=== PATIENT | female | born 1975 | race Caucasian/White ===

== ENCOUNTER → 2019-06-10 | Outpatient (CLI) | payer OTHER ==
--- NOTE | 2019-06-10 09:08 | MM ---
Reason for exam: screening (asymptomatic). Baseline mammogram. History: Patient is nulliparous. Physical Findings: Nurse did not find any significant physical abnormalities on exam. MG Diagnostic Mammo w CAD ARACELI Bilateral CC and MLO view(s) were taken. The breast tissue is heterogeneously dense. This may lower the sensitivity of mammography. No significant findings. These results were verbally communicated with the patient and result sheet given to the patient on 06/10/19. ASSESSMENT: Incomplete: need additional imaging evaluation, BI-RAD 0 RECOMMENDATION: Ultrasound of the left breast.
--- NOTE | 2019-06-10 09:09 | USB ---
Reason for exam: additional evaluation requested from abnormal screening. History: Patient is nulliparous. US Breast BILAT Right complete breast ultrasound includes all four quadrants, the retroareolar region and axilla. Finding demonstrates no cystic or solid lesion seen. Left complete breast ultrasound includes all four quadrants, the retroareolar region and axilla. Finding demonstrates no cystic or solid lesion seen. These results were verbally communicated with the patient and result sheet given to the patient on 06/10/19. ASSESSMENT: Benign, BI-RAD 2 RECOMMENDATION: Routine screening mammogram of both breasts in 1 year.
== END | disposition home or self-care (01) ==
LOC: RADMAMWWP 07:26
PROVIDERS: ATTEND Internal Medicine
DX: N63.20 Unspecified lump in the left breast, unspecified quadrant (principal); N63.10 Unspecified lump in the right breast, unspecified quadrant; R92.8 Other abnormal and inconclusive findings on diagnostic imaging of breast
CPT/HCPCS: 77066

== ENCOUNTER → 2020-02-17 | Outpatient (CLI) | payer OTHER ==
[2020-02-17 16:05] LABS: Albumin 4.7 g/dL (3.80-4.90); Albumin/Globulin Ratio 2.35 (1.60-3.17); Anion Gap 6.4 mmol/L (4.00-12.00); BUN/Creat Ratio 17.14 Ratio (12.00-20.00); Calcium 9.6 mg/dL (8.7-10.3); Carbon Dioxide 23.6 mmol/L (21.6-31.8); Non-African American GFR(CKD) 106.1 (60.0-200.0); Potassium 4.7 mmol/L (3.5-5.5); Total Bilirubin 0.4 mg/dL (0.2-1.2); Total Protein 6.7 g/dL (6.2-8.2)
[2020-02-17 16:06] LABS: Chol/HDL Ratio 2.91; LDL Cholesterol,Calculated 113.4 mg/dL (0.0-131.0); VLDL Calculation 27.6 mg/dL (5.00-40.00)
[2020-02-17 17:42] LABS: Urine Creatinine 103.4 mg/dL
[2020-02-17 17:51] LABS: Hemoglobin A1C 6.4 % (4.0-6.0)
== END | disposition home or self-care (01) ==
LOC: LABWHC1 10:14
PROVIDERS: ATTEND Physician Assistant
DX: E78.5 Hyperlipidemia, unspecified (principal); E11.9 Type 2 diabetes mellitus without complications
CPT/HCPCS: 36415; 80053; 80061; 82043; 82570; 83036

== ENCOUNTER 2022-01-02 12:07 | Inpatient (IN) | payer OTHER ==
--- NOTE | 2022-01-02 12:30 | ED ---
Extremity Problem HPI - General Chief complaint: Extremity Problem,Nontraumatic Stated complaint: Foot swelling/not feeling right Time Seen by Provider: 01/02/22 12:18 Source: patient, RN notes reviewed Mode of arrival: ambulatory Limitations: no limitations - History of Present Illness Initial comments: This is a 46-year-old female who presents to the emergency department for left lower extremity pain and swelling. States that 3 weeks ago she went to urgent care for coughing, and was diagnosed with bronchitis and given a prescription for doxycycline 7 days. States that this helped with her cough, however she still feels overall very ill. She continues to feel shortness of breath, heavy, and just not right. Last night, she noticed that her left foot and left lower leg became painful, states that the calf in particular is very painful. Denies any fevers, chills, sore throat, cough, dyspnea, chest pain, palpitations, abdominal pain, nausea, vomiting, diarrhea, back pain, or headaches. MD Complaint: extremity pain, extremity swelling Onset/Timin -: days(s) Location: left, lower extremity History of Same: No Associated Symptoms: shortness of breath - Related Data Home Medications Medication Instructions Recorded Confirmed Albuterol Sulfate [Proair Hfa] 2 puff INHALATION RT-Q6H PRN 01/02/22 01/02/22 Aspirin EC [Ecotrin Low Dose] 81 mg PO HS 01/02/22 01/02/22 Atorvastatin [Lipitor] 20 mg PO HS 01/02/22 01/02/22 Benzonatate [Benzonatate Perle] 200 mg PO Q8H PRN 01/02/22 01/02/22 Doxycycline Hyclate 100 mg PO BID 01/02/22 01/02/22 metFORMIN HCL [Glucophage] 500 mg PO BID 01/02/22 01/02/22 Allergies Allergy/AdvReac Type Severity Reaction Status Date / Time codeine Allergy Unknown Verified 01/02/22 15:54 Penicillins Allergy Unknown Verified 01/02/22 15:54 Review of Systems ROS Statement: Those systems with pertinent positive or pertinent negative responses have been documented in the HPI. ROS Other: All systems not noted in ROS Statement are negative. Past Medical History Past Medical History: Diabetes Mellitus, Hyperlipidemia History of Any Multi-Drug Resistant Organisms: None Reported Past Surgical History: Appendectomy Past Psychological History: No Psychological Hx Reported Smoking Status: Current every day smoker Past Alcohol Use History: Occasional Past Drug Use History: None Reported General Exam Limitations: no limitations General appearance: alert, in distress Head exam: Present: atraumatic, normocephalic, normal inspection Neck exam: Present: normal inspection. Absent: tenderness, meningismus, lymphadenopathy Respiratory exam: Present: rales (in all four lung diane) Cardiovascular Exam: Present: normal rhythm, tachycardia, normal heart sounds. Absent: systolic murmur, diastolic murmur, rubs, gallop, clicks Extremities exam: Present: normal capillary refill, other (2+ pitting edema in t he left lower extremity. 2+ dorsalis pedis and tibialis posterior pulses bilaterally.) Neurological exam: Present: alert, oriented X3, CN II-XII intact Psychiatric exam: Present: normal affect, normal mood Skin exam: Present: warm, dry, intact, normal color. Absent: rash Course Vital Signs 01/02/22 01/02/22 01/02/22 12:08 12:35 15:44 Temperature 97.4 F L 98.5 F 98.0 F Pulse Rate 123 H 119 H 116 H Respiratory 16 14 14 Rate Blood Pressure 103/74 142/99 132/101 O2 Sat by Pulse 100 100 97 Oximetry Medical Decision Making - Medical Decision Making This is a 46-year-old female who presents to the emergency department for left leg swelling and shortness of breath. Lab work reveals an elevated BNP, she is noted to have rales on auscultation, and has an elevated d-dimer. Given the elevated d-dimer, associated shortness of breath, and tachycardia, CTA was obtained. This did not reveal a pulmonary embolism, however it did reveal cardiomegaly and trace ascites. Cardiomegaly was also present on the chest x- ray. Given the patient's progressive dyspnea and fatigue, will admit the patient for new onset CHF. - Lab Data Result diagrams: 01/02/22 12:38 01/02/22 12:38 Lab Results 01/02/22 01/02/22 01/02/22 Range/Units 12:38 12:38 12:38 WBC 7.4 (3.8-10.6) k/uL RBC 4.27 (3.80-5.40) m/uL Hgb 13.6 (11.4-16.0) gm/dL Hct 42.9 (34.0-46.0) % MCV 100.5 H (80.0-100.0) fL MCH 31.8 (25.0-35.0) pg MCHC 31.6 (31.0-37.0) g/dL RDW 12.9 (11.5-15.5) % Plt Count 318 (150-450) k/uL MPV 7.5 Neutrophils % 73 % Lymphocytes % 18 % Monocytes % 6 % Eosinophils % 1 % Basophils % 1 % Neutrophils # 5.4 (1.3-7.7) k/uL Lymphocytes # 1.4 (1.0-4.8) k/uL Monocytes # 0.4 (0-1.0) k/uL Eosinophils # 0.1 (0-0.7) k/uL Basophils # 0.1 (0-0.2) k/uL ESR Cancelled D-Dimer 0.75 H (<0.60) mg/L FEU Sodium 136 L (137-145) mmol/L Potassium 4.8 (3.5-5.1) mmol/L Chloride 107 (98-107) mmol/L Carbon Dioxide 18 L (22-30) mmol/L Anion Gap 11 mmol/L BUN 10 (7-17) mg/dL Creatinine 0.63 (0.52-1.04) mg/dL Est GFR (CKD-EPI)AfAm >90 (>60 ml/min/1.73 sqM) Est GFR (CKD-EPI)NonAf >90 (>60 ml/min/1.73 sqM) Glucose 125 H (74-99) mg/dL Calcium 8.9 (8.4-10.2) mg/dL Total Bilirubin 1.2 (0.2-1.3) mg/dL AST 53 H (14-36) U/L ALT 41 H (4-34) U/L Alkaline Phosphatase 81 (38-126) U/L Troponin I (0.000-0.034) ng/mL C-Reactive Protein 0.6 (<1.0) mg/dL NT-Pro-B Natriuret Pep pg/mL Total Protein 7.1 (6.3-8.2) g/dL Albumin 4.2 (3.5-5.0) g/dL Coronavirus (PCR) (Not Detectd) Influenza Type A RNA (Not Detectd) Influenza Type B (PCR) (Not Detectd) 01/02/22 01/02/22 01/02/22 Range/Units 12:38 12:38 12:38 WBC (3.8-10.6) k/uL RBC (3.80-5.40) m/uL Hgb (11.4-16.0) gm/dL Hct (34.0-46.0) % MCV (80.0-100.0) fL MCH (25.0-35.0) pg MCHC (31.0-37.0) g/dL RDW (11.5-15.5) % Plt Count (150-450) k/uL MPV Neutrophils % % Lymphocytes % % Monocytes % % Eosinophils % % Basophils % % Neutrophils # (1.3-7.7) k/uL Lymphocytes # (1.0-4.8) k/uL Monocytes # (0-1.0) k/uL Eosinophils # (0-0.7) k/uL Basophils # (0-0.2) k/uL ESR D-Dimer (<0.60) mg/L FEU Sodium (137-145) mmol/L Potassium (3.5-5.1) mmol/L Chloride (98-107) mmol/L Carbon Dioxide (22-30) mmol/L Anion Gap mmol/L BUN (7-17) mg/dL Creatinine (0.52-1.04) mg/dL Est GFR (CKD-EPI)AfAm (>60 ml/min/1.73 sqM) Est GFR (CKD-EPI)NonAf (>60 ml/min/1.73 sqM) Glucose (74-99) mg/dL Calcium (8.4-10.2) mg/dL Total Bilirubin (0.2-1.3) mg/dL AST (14-36) U/L ALT (4-34) U/L Alkaline Phosphatase (38-126) U/L Troponin I <0.012 (0.000-0.034) ng/mL C-Reactive Protein (<1.0) mg/dL NT-Pro-B Natriuret Pep pg/mL Total Protein (6.3-8.2) g/dL Albumin (3.5-5.0) g/dL Coronavirus (PCR) Not Detected (Not Detectd) Influenza Type A RNA Not Detected (Not Detectd) Influenza Type B (PCR) Not Detected (Not Detectd) 01/02/22 01/02/22 Range/Units 12:38 14:00 WBC (3.8-10.6) k/uL RBC (3.80-5.40) m/uL Hgb (11.4-16.0) gm/dL Hct (34.0-46.0) % MCV (80.0-100.0) fL MCH (25.0-35.0) pg MCHC (31.0-37.0) g/dL RDW (11.5-15.5) % Plt Count (150-450) k/uL MPV Neutrophils % % Lymphocytes % % Monocytes % % Eosinophils % % Basophils % % Neutrophils # (1.3-7.7) k/uL Lymphocytes # (1.0-4.8) k/uL Monocytes # (0-1.0) k/uL Eosinophils # (0-0.7) k/uL Basophils # (0-0.2) k/uL ESR 5 D-Dimer (<0.60) mg/L FEU Sodium (137-145) mmol/L Potassium (3.5-5.1) mmol/L Chloride (98-107) mmol/L Carbon Dioxide (22-30) mmol/L Anion Gap mmol/L BUN (7-17) mg/dL Creatinine (0.52-1.04) mg/dL Est GFR (CKD-EPI)AfAm (>60 ml/min/1.73 sqM) Est GFR (CKD-EPI)NonAf (>60 ml/min/1.73 sqM) Glucose (74-99) mg/dL Calcium (8.4-10.2) mg/dL Total Bilirubin (0.2-1.3) mg/dL AST (14-36) U/L ALT (4-34) U/L Alkaline Phosphatase (38-126) U/L Troponin I (0.000-0.034) ng/mL C-Reactive Protein (<1.0) mg/dL NT-Pro-B Natriuret Pep 3380 pg/mL Total Protein (6.3-8.2) g/dL Albumin (3.5-5.0) g/dL Coronavirus (PCR) (Not Detectd) Influenza Type A RNA (Not Detectd) Influenza Type B (PCR) (Not Detectd) - EKG Data EKG Comments: Sinus tachycardia. Ventricular rate 118 bpm, AL interval 162 ms, QRS duration 90 ms, and QTC 397 ms. Disposition Clinical Impression: New onset of congestive heart failure, Dyspnea Disposition: ADMITTED IP TO THIS HOSP Referrals: Altagracia Mckinnon MD [Primary Care Provider] - 1-2 days
[2022-01-02] MEDS ORDERED: diphenhydrAMINE 50 MG CAP PO STA (13:05)
[2022-01-02] MEDS ORDERED: haloperidoL 1 MG TAB PO STA (13:05)
[2022-01-02 13:17] LABS: Basophils # (A) 0.1 k/uL (0-0.2); Basophils % (A) 1 %; Eosinophils # (A) 0.1 k/uL (0-0.7); Eosinophils % (A) 1 %; HCT 42.9 % (34.0-46.0); HGB 13.6 gm/dL (11.4-16.0); Lymphocytes # (A) 1.4 k/uL (1.0-4.8); Lymphocytes % (A) 18 %; MCH 31.8 pg (25.0-35.0); MCHC 31.6 g/dL (31.0-37.0); MCV 100.5 fL (80.0-100.0); Mean Platelet Volume 7.5; Monocytes # (A) 0.4 k/uL (0-1.0); Monocytes % (A) 6 %; Neutrophils # (A) 5.4 k/uL (1.3-7.7); Neutrophils % (A) 73 %; Platelet Count 318 k/uL (150-450); RBC 4.27 m/uL (3.80-5.40); RDW 12.9 % (11.5-15.5); WBC 7.4 k/uL (3.8-10.6)
--- NOTE | 2022-01-02 13:28 | XR ---
EXAMINATION TYPE: XR chest 2V DATE OF EXAM: 01/02/2022 COMPARISON: NONE HISTORY: Cough and shortness of breath TECHNIQUE: Frontal and lateral views of the chest are obtained. FINDINGS: There is no focal air space opacity, pleural effusion, or pneumothorax seen. The cardiac silhouette size is mildly enlarged. The osseous structures are intact. IMPRESSION: Mild cardiomegaly without acute pulmonary process.
[2022-01-02 13:35] LABS: ALT 41 U/L (4-34); AST 53 U/L (14-36); African American GFR (CKD) >90 (>60 ml/min/1.73 sqM); Albumin 4.2 g/dL (3.5-5.0); Alkaline Phosphatase 81 U/L (38-126); Anion Gap 11 mmol/L; Blood Urea Nitrogen 10 mg/dL (7-17); Calcium 8.9 mg/dL (8.4-10.2); Carbon Dioxide 18 mmol/L (22-30); Chloride 107 mmol/L (98-107); Glucose 125 mg/dL (74-99); Non-African American GFR(CKD) >90 (>60 ml/min/1.73 sqM); Potassium 4.8 mmol/L (3.5-5.1); Sodium 136 mmol/L (137-145); Total Bilirubin 1.2 mg/dL (0.2-1.3); Total Protein 7.1 g/dL (6.3-8.2)
[2022-01-02 13:39] LABS: C Reactive Protein 0.6 mg/dL (<1.0)
--- NOTE | 2022-01-02 14:16 | US ---
EXAMINATION TYPE: US venous doppler duplex LE LT DATE OF EXAM: 01/02/2022 1:58 PM COMPARISON: NONE CLINICAL HISTORY: Left leg pain and swelling. Left calf pain and swelling. Pt states has never had a blood clot. SIDE PERFORMED: Left TECHNIQUE: The lower extremity deep venous system is examined utilizing real time linear array sonog liya with graded compression, doppler sonography and color-flow sonography. VESSELS IMAGED: Common Femoral Vein Deep Femoral Vein Greater Saphenous Vein * Femoral Vein Popliteal Vein Small Saphenous Vein * Proximal Calf Veins (* superficial vessels) Grayscale, color doppler, spectral doppler imaging performed of the deep veins of the lower extremiti es. There is normal flow, compressibility, vascular waveforms. Left Leg: Negative for DVT IMPRESSION: No evidence of DVT of the left lower survey.
--- NOTE | 2022-01-02 15:20 | CT ---
EXAMINATION TYPE: CT chest angio for PE CT DLP: 354.7 mGycm, Automated exposure control for dose reduction was used. DATE OF EXAM: 01/02/2022 2:59 PM COMPARISON: Chest radiograph from same day. CLINICAL INDICATION:Female, 46 years old with history of SOB, tachycardia, elevated d-dimer and BNP; SOB, tachycardia, elevated d-dimer, BNP. Lower extremity swelling. Pt denies cardiac hx. TECHNIQUE/CONTRAST: CTA scan of the thorax is performed with IV Contrast, patient injected with 100 mL of Isovue 370, pul monary embolism protocol. MIP images are created and reviewed. FINDINGS: Pulmonary Artery: There is no evidence for a filling defect within the pulmonary vasculature to sugge st acute pulmonary embolism. The pulmonary artery is of normal size. Lungs/Pleura: No evidence of focal consolidation, pleural effusion or pneumothorax. Streaky atelectas is seen in the posterior aspect of the left upper lobe. Airway: Large airways are patent. Heart: The heart is enlarged for size. Vasculature: No evidence of aortic aneurysm. Mediastinum: No gross evidence of adenopathy. Musculoskeletal: Mild degenerative disc disease changes are present throughout the thoracolumbar spin e. Soft Tissues: Unremarkable. Lower neck: No significant findings. Upper Abdomen: Trace ascites within and around the liver. [facility] so [facility] and I were post[facility] days) IMPRESSION: 1. No evidence of pulmonary embolism. 2. Cardiomegaly 3. Trace ascites.
[2022-01-02] MEDS ORDERED: ONDANSETRON 4 MG/2 ML VIAL IVP PRN (16:32)
[2022-01-02] MEDS ORDERED: oxyCODONE-APAP 5-325MG 1 EACH TAB PO PRN (16:32)
[2022-01-02] MEDS ORDERED: ACETAMINOPHEN TAB 325 MG TAB PO PRN (16:32)
[2022-01-02] MEDS ORDERED: NALOXONE 0.4 MG/ML 1 ML VIAL IV PRN (16:32)
[2022-01-02] MEDS ORDERED: IPRATROPIUM-ALBUTEROL 3 ML NEB INHALATION PRN (17:22)
--- NOTE | 2022-01-02 17:40 | P.HPIM ---
History of Present Illness H&P Date: 01/02/22 Chief Complaint: shortness of breath Patient is a 46-year-old female with a past medical history of prediabetes, hyperlipidemia and tobacco abuse who presents to the ED with worsening dyspnea over the last 3 weeks. Patient did go to urgent care who thought she had bronchitis so started her on steroids and antibiotics. Patient states that this was not helping and then she noticed that she was having worsening edema in her bilateral lower extremities which prompted her to come to the ED.. Patient denies any PND or orthopnea. She stated that she is coughing up clear sputum. She denies any fever or chills. In the ED patient was tachycardic and her d-dimer was elevated so CTA chest was done. CTA chest was negative for PE however did show cardiomegaly. Patient lower extremity Dopplers were negative for DVT. Patient's BNP was elevated at 3380. Patient was admitted for likely new onset heart failure. Review of Systems 10 ROS reviewed and are negative except as noted in HPI Past Medical History Past Medical History: Diabetes Mellitus, Hyperlipidemia History of Any Multi-Drug Resistant Organisms: None Reported Past Surgical History: Appendectomy Past Psychological History: No Psychological Hx Reported Smoking Status: Current every day smoker Past Alcohol Use History: Occasional Past Drug Use History: None Reported Medications and Allergies Home Medications Medication Instructions Recorded Confirmed Type Albuterol Sulfate [Proair Hfa] 2 puff INHALATION RT-Q6H PRN 01/02/22 01/02/22 History Aspirin EC [Ecotrin Low Dose] 81 mg PO HS 01/02/22 01/02/22 History Atorvastatin [Lipitor] 20 mg PO HS 01/02/22 01/02/22 History Benzonatate [Benzonatate Perle] 200 mg PO Q8H PRN 01/02/22 01/02/22 History Doxycycline Hyclate 100 mg PO BID 01/02/22 01/02/22 History metFORMIN HCL [Glucophage] 500 mg PO BID 01/02/22 01/02/22 History Allergies Allergy/AdvReac Type Severity Reaction Status Date / Time codeine Allergy Unknown Verified 01/02/22 15:54 Penicillins Allergy Unknown Verified 01/02/22 15:54 Physical Exam Osteopathic Statement: *. No significant issues noted on an osteopathic structural exam other than those noted in the History and Physical/Consult. Vitals: Vital Signs Temp Pulse Resp BP Pulse Ox 01/02/22 17:17 98.1 F 114 H 14 133/88 95 01/02/22 15:44 98.0 F 116 H 14 132/101 97 01/02/22 12:35 98.5 F 119 H 14 142/99 100 01/02/22 12:08 97.4 F L 123 H 16 103/74 100 Intake and Output 01/02/22 01/02/22 01/02/22 06:59 14:59 22:59 Other: Weight 74.843 kg General: [Alert and oriented, well nourished, no acute distress]. Eye: [PERRL, EOMI, normal conjunctiva]. HENT: [Normocephalic, clear tympanic membranes, normal hearing, moist oral mucosa, no scleral icterus, no sinus tenderness]. Neck: [Supple, non-tender, no carotid bruits, no JVD, no lymphadenopathy]. Lungs: [Bilateral wheezing]. Heart: [Tachycardic, regular rhythm, no murmur, gallop + pitting edema in bilateral lower extremities]. Abdomen: [Soft, non-tender, non-distended, normal bowel sounds, no masses]. Musculoskeletal: [Normal range of motion and strength, no tenderness or swelling]. Skin: [Skin is warm, dry and pink, no rashes or lesions]. Neurologic: [Awake, alert, and oriented X3, CN II-XII intact]. Psychiatric: [Cooperative, appropriate mood and affect]. Results CBC & Chem 7: 01/02/22 12:38 01/02/22 12:38 Labs: Abnormal Lab Results - Last 24 Hours (Table) 01/02/22 01/02/22 01/02/22 Range/Units 12:38 12:38 12:38 MCV 100.5 H (80.0-100.0) fL D-Dimer 0.75 H (<0.60) mg/L FEU Sodium 136 L (137-145) mmol/L Carbon Dioxide 18 L (22-30) mmol/L Glucose 125 H (74-99) mg/dL AST 53 H (14-36) U/L ALT 41 H (4-34) U/L Assessment and Plan Assessment: #Dyspnea and worsening lower extremity edema #Suspect heart failure #Suspect COPD exacerbation #Tobacco abuse -We will start patient on IV Lasix 20 mg daily -Strict I's and O's, daily weights, fluid restriction -Check echocardiogram -DuoNeb standing and when necessary --IV Solu-Medrol 40 mg every 6 hours -Azithromycin -Nicotine patch. Patient counseled on smoking cessation #Sinus tachycardia likely due to dyspnea -Monitor on telemetry #Prediabetes -Hold metformin. Sliding scale insulin #Hyperlipidemia -Resume statin CODE STATUS:full code DVT prophylaxis: SCDs Discussed with: Patient, ER, rn Anticipated length of stay < than [address]: home A total of 50 minutes was spent on the care of this complex patient more than 50% of the time was spent in counseling and care coordination.
[2022-01-02] MEDS: AZITHROMYCIN 500 MG TAB PO SCH (17:45)
[2022-01-02] MEDS: NICOTINE 21MG/24HR PATCH TRANSDERM SCH (17:49)
[2022-01-02] MEDS: methylPREDNISolone SOD SUCCI 40 MG/ML 1 ML VIAL IV SCH (17:49)
[2022-01-02] MEDS: IPRATROPIUM-ALBUTEROL 3 ML NEB INHALATION SCH (19:14)
[2022-01-02] MEDS: BENZONATATE 100 MG CAP PO PRN (20:01)
[2022-01-02] MEDS: FUROSEMIDE 10 MG/ML 2 ML VIAL IV SCH (20:02)
[2022-01-02] MEDS: ASPIRIN 81 MG PO SCH (20:02)
[2022-01-02] MEDS: ATORVASTATIN 20 MG TAB PO SCH (20:02)
[2022-01-02] MEDS ORDERED: MELATONIN 5 MG TABLET PO ONE (23:58)
[2022-01-03] MEDS: methylPREDNISolone SOD SUCCI 40 MG/ML 1 ML VIAL IV SCH ×4 (00:52→20:42)
[2022-01-03 06:45] LABS: Glucose,Whole Blood 261 mg/dL (75-99)
[2022-01-03] MEDS: INSULIN ASPART (NovoLOG) 100 UNIT/ML VIAL SQ SCH ×5 (06:49→20:41)
[2022-01-03] MEDS: IPRATROPIUM-ALBUTEROL 3 ML NEB INHALATION SCH ×3 (07:40→20:30)
[2022-01-03] MEDS: AZITHROMYCIN 500 MG TAB PO SCH (09:04)
[2022-01-03] MEDS: NICOTINE 21MG/24HR PATCH TRANSDERM SCH (09:05)
[2022-01-03] MEDS: FUROSEMIDE 10 MG/ML 2 ML VIAL IV SCH ×2 (09:05→20:40)
[2022-01-03 09:14] LABS: ALT 32 U/L (4-34); AST 32 U/L (14-36); African American GFR (CKD) >90 (>60 ml/min/1.73 sqM); Albumin 3.8 g/dL (3.5-5.0); Alkaline Phosphatase 76 U/L (38-126); Anion Gap 9 mmol/L; Blood Urea Nitrogen 16 mg/dL (7-17); Calcium 8.7 mg/dL (8.4-10.2); Carbon Dioxide 21 mmol/L (22-30); Chloride 103 mmol/L (98-107); Glucose 372 mg/dL (74-99); Non-African American GFR(CKD) >90 (>60 ml/min/1.73 sqM); Potassium 4.8 mmol/L (3.5-5.1); Sodium 133 mmol/L (137-145); Total Protein 6.2 g/dL (6.3-8.2)
--- NOTE | 2022-01-03 10:58 | P.CNPUL ---
History of Present Illness Consult date: 01/03/22 Reason for consult: dyspnea History of present illness: 46-year-old male patient admitted to [facility] because of increased shortness of breath a few weeks duration. The patient went to an urgent care for symptoms of bronchitis and he was given antibiotics and steroids. He was also noticing some increased edema in lower extremities bilaterally. He denied having any orthopnea. He was coughing up some clear sputum. For that reason he came into the hospital and the chest x-ray at the time of admission showed cardiomegaly without any acute abnormalities. The patient's proBNP level was 3318. A CT angiogram was done and the patient was found to have no evidence of any pulmonary embolism. There was background cardiomegaly and trace ascites. The lungs were free of any consolidation or pleural effusion or pneumothorax. Some atelectatic changes were seen in the posterior aspect of the left upper lobe. Airways were essentially patent. The patient was negative for influenza A and B. The COVID 19 testing was also negative. His blood work showed a white cell count 7.4 with hemoglobin 13.6. D-dimer was at 0.75, electrodes were normal, renal function was normal, proBNP level was 3380. Currently, the patient is receiving treatment with IV Lasix 20 mg every 12 hours. He was also placed on DuoNeb neb last treatment [id number] and empiric antibiotic coverage for Zithromax. Is a chronic smoker is currently on a nicotine patch. He is known to have diabetes mellitus and hyperlipidemia. Echo of the heart has been o rdered. He is currently on O2 and he is on 3 L with a pulse ox of 98%. No history of asthma. No history of emphysema. She is a chronic smoker and she's been smoking since the age of 20. 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 She has received COVID 19 vaccination 2. Covid 19 testing is been negative. Review of Systems Constitutional: Denies chills, Denies fever Eyes: denies as per HPI, denies blurred vision, denies bulging eye, denies decreased vision, denies diplopia, denies discharge, denies dry eye, denies irritation, denies itching, denies pain, denies photophobia, denies loss of peripheral vision, denies loss of vision, denies tunnel vision/blind spots Ears, nose, mouth and throat: Denies headache, Denies sore throat Breasts: absent: as per HPI, change in shape, gynecomastia, masses, nipple discharge, pain, skin changes, swelling Cardiovascular: Reports leg edema, Reports shortness of breath Respiratory: Reports dyspnea Gastrointestinal: Reports as per HPI Genitourinary: Reports as per HPI Menstruation: Reports as per HPI Musculoskeletal: Reports as per HPI Musculoskeletal: bilateral: ankle swelling, absent: ankle pain, ankle stiffness Integumentary: Reports as per HPI Neurological: Reports as per HPI Psychiatric: Reports insomnia, Reports sleep disturbances Endocrine: Reports as per HPI Hematologic/Lymphatic: Reports as per HPI Allergic/Immunologic: Reports as per HPI Past Medical History Past Medical History: Diabetes Mellitus, Hyperlipidemia Additional Past Medical History / Comment(s): Chronic insomnia History of Any Multi-Drug Resistant Organisms: None Reported Past Surgical History: Appendectomy Past Psychological History: No Psychological Hx Reported Smoking Status: Current every day smoker Past Alcohol Use History: Occasional Past Drug Use History: None Reported - Past Family History Mother Family Medical History: Hyperlipidemia Medications and Allergies Home Medications Medication Instructions Recorded Confirmed Type Albuterol Sulfate [Proair Hfa] 2 puff INHALATION RT-Q6H PRN 01/02/22 01/02/22 History Aspirin EC [Ecotrin Low Dose] 81 mg PO HS 01/02/22 01/02/22 History Atorvastatin [Lipitor] 20 mg PO HS 01/02/22 01/02/22 History Benzonatate [Benzonatate Perle] 200 mg PO Q8H PRN 01/02/22 01/02/22 History Doxycycline Hyclate 100 mg PO BID 01/02/22 01/02/22 History metFORMIN HCL [Glucophage] 500 mg PO BID 01/02/22 01/02/22 History Allergies Allergy/AdvReac Type Severity Reaction Status Date / Time codeine Allergy Unknown Verified 01/02/22 15:54 Penicillins Allergy Unknown Verified 01/02/22 15:54 Physical Exam Vitals: Vital Signs Temp Pulse Pulse Resp BP BP Pulse Ox 01/03/22 07:56 100 01/03/22 07:41 100 01/03/22 04:10 98 01/03/22 04:00 97.6 F 110 H 18 127/88 89 L 01/03/22 00:00 97.7 F 113 H 16 139/99 94 L 01/02/22 20:06 117 H 136/104 96 01/02/22 19:24 116 H 01/02/22 19:14 118 H 01/02/22 17:17 98.1 F 114 H 14 133/88 95 01/02/22 15:44 98.0 F 116 H 14 132/101 97 01/02/22 12:35 98.5 F 119 H 14 142/99 100 01/02/22 12:08 97.4 F L 123 H 16 103/74 100 Intake and Output 01/02/22 01/03/22 01/03/22 22:59 06:59 14:59 Intake Total 240 Output Total 750 Balance -510 Intake: Oral 240 Output: Urine 750 Other: Voiding Method Toilet # Voids 2 Weight 74.843 kg 82.1 kg General: [Alert and oriented, well nourished, no acute distress, on 3 liters/ min and she was switched to RA 02 Taken off the oxygen and she is currently on room air oxygen. She is able to speak Full sentences. Head exam was generally normal. There was no scleral icterus or corneal arcus. Mucous membranes were moist. Neck was supple and without jugular venous distension, thyromegaly, or carotid bruits. Carotids were easily palpable bilaterally. There was no adenopathy. Lungs sounds are diminished and the patient has prolongation of the exhalation phase of breathing and diffuse expiratory wheezes throughout the lung diane bilaterally Heart: [Tachycardic, regular rhythm, no murmur, gallop + pitting edema in bilateral lower extremities]. Abdomen: [Soft, non-tender, non-distended, normal bowel sounds, no masses]. Musculoskeletal: [Normal range of motion and strength, no tenderness or swelling]. Skin: [ Examination of the skin revealed no evidence of significant rashes, suspicious appearing nevi or other concerning lesions. Neurologic: Neurologically, the patient is awake and alert and the patient does not have any focal neurological deficit. Cranial nerves are essentially intact. Psychiatric: [Cooperative, appropriate mood and affect]. Results - Laboratory Findings CBC and BMP: 01/02/22 12:38 01/03/22 08:38 PT/INR, D-dimer D-Dimer 0.75 mg/L FEU (<0.60) H 01/02/22 12:38 Abnormal lab findings: Abnormal Labs 01/02/22 01/02/22 01/02/22 12:38 12:38 12:38 MCV 100.5 H D-Dimer 0.75 H Sodium 136 L Carbon Dioxide 18 L Glucose 125 H POC Glucose (mg/dL) AST 53 H ALT 41 H Total Protein 01/03/22 01/03/22 06:17 08:38 MCV D-Dimer Sodium 133 L Carbon Dioxide 21 L Glucose 372 H POC Glucose (mg/dL) 261 H AST ALT Total Protein 6.2 L - Diagnostic Findings Chest x-ray: image reviewed CT scan - chest: image reviewed Assessment and Plan Plan: 1 acute hypoxic respiratory failure probably due to a component of chronic bronchitis with an acute exacerbation in addition to a component of CHF that needs to be further investigated. The patient is a chronic smoker. Currently she is bronchospastic and wheezy. She did have signs of CHF at the time of admission with elevation of the pro BNP level and the patient has responded nicely to diuretics. Currently she is on room air oxygen 2 shortness of breath secondary to above 3 elevated proBNP level with some increased lower extremity edema consider underlying CHF 4 chronic smoker 5 diabetes mellitus type 2 6 Hyperlipidemia cholesterol Plan Continue DuoNeb [id number] Continued IV Solu-Medrol Agree with Zithromax as a empiric antibiotic coverage Continue with Lasix 20 mg IV every 12 hours Proceed with echocardiogram to evaluate LV function Nicotine patch Smoking cessation counseling Outpatient PFT with a concern of this patient having chronic bronchitis related to chronic smoking Resume diabetic meds We'll continue to follow. COVID 19 testing is been negative and the patient has been vaccinated 2.
--- NOTE | 2022-01-03 11:06 | P.CRDCN ---
History of Present Illness Consult date: 01/03/22 History of present illness: HISTORY OF PRESENT ILLNESS: This is a 46-year-old female with a past medical history significant for diabetes and hyperlipidemia. Patient is a pack a day smoker. She reports alcohol use twice a week. Patient does not follow with a service cleaner. We have been asked to see the patient in consultation for congestive heart failure. Patient examined at the bedside. Patient states she thought she was getting bronchitis b ecause she was coughing a lot and was short of breath. She states that she went to the urgent care and was given antibiotics for possible pneumonia. She states at home she was bringing up clear/white sputum. She denied any fever or chills. She reported some lower extremity swelling which has improved since coming to the hospital. She states her shortness of breath persisted so she decided to come to the emergency room. She denies any chest pain or pressure. Denies dizziness or lightheadedness. * EKG reveals sinus tachycardia with no signs of acute ischemia * Chest xray mild cardiomegaly without acute pulmonary process * Chest CT: No evidence for PE, cardiomegaly, trace ascites * Laboratory data: WBC 7.4. Hemoglobin 13.6. Platelet count 318. D-dimer 0.75. Sodium 136. Potassium 4.8. BUN 10. Creatinine 0.63. Troponin negative 1. ProBNP 3380. * Current home cardiac medications include Lipitor 20 mg at night and aspirin 81 mg at night REVIEW OF SYSTEMS: At the time of my exam: CONSTITUTIONAL: Denies fever or chills. HEENT: Denies blurred vision, vision changes, or eye pain. Denies hemoptysis CARDIOVASCULAR: Denies chest pain. Denies orthopnea. Denies PND. Denies palpitations RESPIRATORY: Denies shortness of breath. GASTROINTESTINAL: Denies abdominal pain. Denies nausea or vomiting. HEMATOLOGIC: Denies bleeding disorders. GENITOURINARY: Denies any blood in urine. SKIN: Denies pruitis. Denies rash. PHYSICAL EXAM: VITAL SIGNS: Reviewed. GENERAL: Well-developed in no acute distress. HEENT: Head is normocephalic. Pupils are equal, round. Sclerae anicteric. Mucous membranes of the mouth are moist. Neck supple. No JVD or thyromegaly LUNGS: Respirations even and unlabored. Lungs diminished with expiratory whe ezing noted HEART: Regular rate and rhythm. S1 and S2 heard. ABDOMEN: Soft. Nondistended. Nontender. EXTREMITIES: Normal range of motion. No clubbing or cyanosis. Peripheral pulses intact. Trace lower extremity edema NEUROLOGIC: Awake and alert. Oriented x 3. ASSESSMENT: Shortness of breath Possible COPD versus bronchitis with wheezing on exam New-onset heart failure, type unknown, etiology unclear Diabetes Hyperlipidemia Nicotine dependence PLAN: Obtain 2D echo to assess cardiac structure and function Continue IV lasix Daily weights Accurate I&O Monitor kidney function Smoking cessation recommended Consult pulmonary for evaluation Further recommendations pending patient's course Nurse practitioner note has been reviewed by physician. Signing provider agrees with the documented findings, assessment, and plan of care. Past Medical History Past Medical History: Diabetes Mellitus, Hyperlipidemia History of Any Multi-Drug Resistant Organisms: None Reported Past Surgical History: Appendectomy Past Psychological History: No Psychological Hx Reported Smoking Status: Current every day smoker Past Alcohol Use History: Occasional Past Drug Use History: None Reported - Past Family History Mother Family Medical History: Hyperlipidemia Medications and Allergies Home Medications Medication Instructions Recorded Confirmed Type Albuterol Sulfate [Proair Hfa] 2 puff INHALATION RT-Q6H PRN 01/02/22 01/02/22 History Aspirin EC [Ecotrin Low Dose] 81 mg PO HS 01/02/22 01/02/22 History Atorvastatin [Lipitor] 20 mg PO HS 01/02/22 01/02/22 History Benzonatate [Benzonatate Perle] 200 mg PO Q8H PRN 01/02/22 01/02/22 History Doxycycline Hyclate 100 mg PO BID 01/02/22 01/02/22 History metFORMIN HCL [Glucophage] 500 mg PO BID 01/02/22 01/02/22 History Allergies Allergy/AdvReac Type Severity Reaction Status Date / Time codeine Allergy Unknown Verified 01/02/22 15:54 Penicillins Allergy Unknown Verified 01/02/22 15:54 Physical Exam Vitals: Vital Signs Temp Pulse Pulse Resp BP BP Pulse Ox 01/03/22 07:41 100 01/03/22 04:10 98 01/03/22 04:00 97.6 F 110 H 18 127/88 89 L 01/03/22 00:00 97.7 F 113 H 16 139/99 94 L 01/02/22 20:06 117 H 136/104 96 01/02/22 19:24 116 H 01/02/22 19:14 118 H 01/02/22 17:17 98.1 F 114 H 14 133/88 95 01/02/22 15:44 98.0 F 116 H 14 132/101 97 01/02/22 12:35 98.5 F 119 H 14 142/99 100 01/02/22 12:08 97.4 F L 123 H 16 103/74 100 Intake and Output 01/02/22 01/03/22 01/03/22 22:59 06:59 14:59 Other: Voiding Method Toilet # Voids 2 Weight 74.843 kg 82.1 kg Results 01/02/22 12:38 01/03/22 08:38 Cardiac Enzymes 01/02/22 01/02/22 Range/Units 12:38 12:38 AST 53 H (14-36) U/L Troponin I <0.012 (0.000-0.034) ng/mL CBC 01/02/22 Range/Units 12:38 WBC 7.4 (3.8-10.6) k/uL RBC 4.27 (3.80-5.40) m/uL Hgb 13.6 (11.4-16.0) gm/dL Hct 42.9 (34.0-46.0) % Plt Count 318 (150-450) k/uL Comprehensive Metabolic Panel 01/02/22 Range/Units 12:38 Sodium 136 L (137-145) mmol/L Potassium 4.8 (3.5-5.1) mmol/L Chloride 107 (98-107) mmol/L Carbon Dioxide 18 L (22-30) mmol/L BUN 10 (7-17) mg/dL Creatinine 0.63 (0.52-1.04) mg/dL Glucose 125 H (74-99) mg/dL Calcium 8.9 (8.4-10.2) mg/dL AST 53 H (14-36) U/L ALT 41 H (4-34) U/L Alkaline Phosphatase 81 (38-126) U/L Total Protein 7.1 (6.3-8.2) g/dL Albumin 4.2 (3.5-5.0) g/dL Current Medications Generic Name Dose Route Start Last Admin Trade Name Freq PRN Reason Stop Dose Admin Acetaminophen 650 mg 01/02/22 16:32 01/02/22 20:01 Acetaminophen Tab 325 Mg Tab PO 650 mg Q6HR PRN Administration Mild Pain or Fever > 100.5 Albuterol/Ipratropium 3 ml 01/02/22 20:00 01/03/22 07:40 Ipratropium-Albuterol 3 Ml Neb INHALATION 3 ml RT-TID BENNY Administration Albuterol/Ipratropium 3 ml 01/02/22 17:22 Ipratropium-Albuterol 3 Ml Neb INHALATION RT-Q4H PRN Wheezing Aspirin 81 mg 01/02/22 21:00 01/02/22 20:02 Aspirin 81 Mg PO 81 mg HS BENNY Administration Atorvastatin Calcium 20 mg 01/02/22 21:00 01/02/22 20:02 Atorvastatin 20 Mg Tab PO 20 mg HS BENNY Administration Azithromycin 500 mg 01/02/22 18:00 01/02/22 17:45 Azithromycin 500 Mg Tab PO 01/05/22 18:01 500 mg DAILY BENNY Administration Protocol Benzonatate 200 mg 01/02/22 17:20 01/02/22 20:01 Benzonatate 100 Mg Cap PO 200 mg Q8H PRN Administration Cough Furosemide 20 mg 01/02/22 21:00 01/02/22 20:02 Furosemide 10 Mg/Ml 2 Ml Vial IV 20 mg Q12HR BENYN Administration Insulin Aspart 0 unit 01/03/22 07:30 01/03/22 06:49 Insulin Aspart (Novolog) 100 Unit/Ml Vial SQ 4 unit ACHS BENNY Administration Protocol Methylprednisolone Sodium Succinate 40 mg 01/02/22 18:00 01/03/22 06:49 Methylprednisolone Sod Succi 40 Mg/Ml 1 Ml Vial IV 40 mg Q6HR BENNY Administration Naloxone HCl 0.2 mg 01/02/22 16:32 Naloxone 0.4 Mg/Ml 1 Ml Vial IV Q2M PRN Opioid Reversal Nicotine 1 patch 01/02/22 17:30 01/02/22 17:49 Nicotine 21mg/24hr Patch TRANSDERM 1 patch DAILY BENNY Administration Ondansetron HCl 4 mg 01/02/22 16:32 Ondansetron 4 Mg/2 Ml Vial IVP Q8HR PRN Nausea And Vomiting Intake and Output 01/02/22 01/03/22 01/03/22 22:59 06:59 14:59 Other: Voiding Method Toilet # Voids 2 Weight 74.843 kg 82.1 kg 01/02/22 12:38 01/02/22 12:38
[2022-01-03 11:32] LABS: Glucose,Whole Blood 369 mg/dL (75-99)
--- NOTE | 2022-01-03 15:55 | P.PN ---
Subjective Progress Note Date: 01/03/22 Principal diagnosis: Dyspnea Patient states that she had a prolonged coughing spell last night where she had a difficult time catching her breath. Patient also stated that she did not sleep well last night. She states that she still feels short of breath with exertion. Objective - Vital Signs Vital signs: Vital Signs Temp 97.9 F 01/03/22 08:00 Pulse 112 H 01/03/22 14:00 Resp 20 01/03/22 14:00 BP 122/82 01/03/22 12:00 Pulse Ox 94 L 01/03/22 12:00 FiO2 Intake & Output 01/02/22 01/03/22 01/03/22 18:59 06:59 18:59 Intake Total 480 Output Total 1250 Balance -770 Weight 74.843 kg 82.1 kg Intake: Oral 480 Output: Urine 1250 Other: Voiding Method Toilet Toilet # Voids 2 - Exam General examination - Alert and Oriented 3 in NAD Heart - + S1S2 no murmurs Lungs - bilateral wheezing Abdomen soft NT ND +ve BS Extremities - No edema INVESTMENT ASSOCIATE - Moving all 4 extremities spontaneously Psych - Calm and cooperative - Labs CBC & Chem 7: 01/02/22 12:38 01/03/22 08:38 Labs: Abnormal Lab Results - Last 24 Hours (Table) 01/03/22 01/03/22 01/03/22 Range/Units 06:17 08:38 11:31 Sodium 133 L (137-145) mmol/L Carbon Dioxide 21 L (22-30) mmol/L Glucose 372 H (74-99) mg/dL POC Glucose (mg/dL) 261 H 369 H (75-99) mg/dL Total Protein 6.2 L (6.3-8.2) g/dL Assessment and Plan Assessment: #Dyspnea and worsening lower extremity edema #Suspect heart failure #Suspect COPD exacerbation #Tobacco abuse -We will start patient on IV Lasix 20 mg every 12 hours -Strict I's and O's, daily weights, fluid restriction -Check echocardiogram -DuoNeb standing and when necessary --IV Solu-Medrol 40 mg every 6 hours -> titrated down to every 12 hours -Azithromycin -Nicotine patch. Patient counseled on smoking cessation -Appreciated recommendations from pulmonology and cardiology #Sinus tachycardia likely due to dyspnea -Monitor on telemetry #Prediabetes Uncontrolled likely due to steroids -Hold metformin. Sliding scale insulin. Add standing aspart 5 units with meals #Hyperlipidemia -Resume statin CODE STATUS:full code DVT prophylaxis: SCDs Anticipated length of stay : One more day Anticipated discharge place: home .
[2022-01-03 16:25] LABS: Glucose,Whole Blood 338 mg/dL (75-99)
--- NOTE | 2022-01-03 18:40 | CA ---
Transthoracic Echo Report Name: Myriam Melo Age: 46 Gender: F : 1975 Exam Date: 01/03/2022 09:05 Exam Location: [facility] Ht (in): 62 Wt (lb): 180 Ordering Physician: Patricia Rosas MD Attending/Referring Phys: Chin Strap Cutter Kathrine Madera RDCS Procedure CPT: Indications: dyspnea Cardiac Hx: Technical Quality: Good Contrast 1: Total Dose (mL): Contrast 2: Total Dose (mL): MEASUREMENTS (Male / Female) Normal Values 2D ECHO LV Diastolic Diameter PLAX 5.2 cm 4.2 - 5.9 / 3.9 - 5.3 cm LV Systolic Diameter PLAX 5.0 cm IVS Diastolic Thickness 1.1 cm 0.6 - 1.0 / 0.6 - 0.9 cm LVPW Diastolic Thickness 1.2 cm 0.6 - 1.0 / 0.6 - 0.9 cm LV Relative Wall Thickness 0.4 RV Internal Dim ED PLAX 3.6 cm LA Systolic Diameter LX 4.5 cm 3.0 - 4.0 / 2.7 - 3.8 cm LA Volume 90.2 cm??? 18 - 58 / 22 - 52 cm??? M-MODE Aortic Root Diameter MM 3.0 cm MV E Point Septal Separation 1.8 cm AV Cusp Separation MM 2.0 cm DOPPLER AV Peak Velocity 115.2 cm/s AV Peak Gradient 5.3 mmHg MV Area PHT 6.1 cm??? MV Deceleration Time 101.1 ms MV E' Velocity 4.3 cm/s TR Peak Velocity 247.8 cm/s TR Peak Gradient 24.6 mmHg Right Ventricular Systolic Press 39.6 mmHg FINDINGS Left Ventricle Left ventricular ejection fraction is estimated at 20-25 %. Left ventricular cavity uppear size normal limitsborderline left ventricular hypertrophy. Right Ventricle Mild right ventricular dilatation. Mild pulmonary hypertension. Right Atrium Normal right atrial size. Left Atrium Moderately increased left atrial diameter. Severely increased left atrial volume. Mildly increased left atrial area. No evidence for an atrial septal defect. Mitral Valve Structurally normal mitral valve. Moderate mitral regurgitation. Aortic Valve Trileaflet aortic valve. No aortic valve stenosis or regurgitation. Tricuspid Valve Mild tricuspid regurgitation. Pulmonic Valve Mild pulmonic regurgitation. Pericardium Normal pericardium. Aorta Normal size aortic root and proximal ascending aorta. CONCLUSIONS Severe LV dysfunction ejection fraction less than 25% Mildly dilated right ventricle Previewed by: Dr. Abilio Estevez MD (Electronically Signed) Final Date: 03 Jan 2022 18:39
[2022-01-03 20:10] LABS: Glucose,Whole Blood 363 mg/dL (75-99)
[2022-01-03] MEDS: ASPIRIN 81 MG PO SCH (20:40)
[2022-01-03] MEDS: ATORVASTATIN 20 MG TAB PO SCH (20:40)
[2022-01-03] MEDS: BENZONATATE 100 MG CAP PO PRN (20:53)
[2022-01-03] MEDS: traZODone HCL 50 MG TAB PO SCH (21:18)
[2022-01-04] MEDS ORDERED: NITROGLYCERIN SL TABS 0.4 MG TAB SUBLINGUAL ONE (06:10)
[2022-01-04 06:22] LABS: Glucose,Whole Blood 186 mg/dL (75-99)
[2022-01-04] MEDS: BENZONATATE 100 MG CAP PO PRN (06:23)
[2022-01-04] MEDS: INSULIN ASPART (NovoLOG) 100 UNIT/ML VIAL SQ SCH ×7 (06:23→20:11)
[2022-01-04 07:28] LABS: Glucose,Whole Blood 203 mg/dL (75-99)
[2022-01-04] MEDS: IPRATROPIUM-ALBUTEROL 3 ML NEB INHALATION SCH ×3 (07:47→20:23)
[2022-01-04 07:56] LABS: Basophils % (A) 0 %; Eosinophils # (A) 0.2 k/uL (0-0.7); Eosinophils % (A) 1 %; HCT 41.1 % (34.0-46.0); HGB 12.9 gm/dL (11.4-16.0); Hypochromasia Slight; Lymphocytes # (A) 0.7 k/uL (1.0-4.8); Lymphocytes % (A) 5 %; MCHC 31.4 g/dL (31.0-37.0); Macrocytosis Slight; Mean Platelet Volume 7.3; Monocytes # (A) 0.4 k/uL (0-1.0); Monocytes % (A) 3 %; Neutrophils # (A) 12.1 k/uL (1.3-7.7); Neutrophils % (A) 91 %; Platelet Count 309 k/uL (150-450); RBC 4.03 m/uL (3.80-5.40); RDW 12.8 % (11.5-15.5); WBC 13.4 k/uL (3.8-10.6)
[2022-01-04 08:05] LABS: African American GFR (CKD) >90 (>60 ml/min/1.73 sqM); Anion Gap 10 mmol/L; Blood Urea Nitrogen 18 mg/dL (7-17); Calcium 8.8 mg/dL (8.4-10.2); Carbon Dioxide 23 mmol/L (22-30); Chloride 102 mmol/L (98-107); Glucose 189 mg/dL (74-99); Non-African American GFR(CKD) >90 (>60 ml/min/1.73 sqM); Potassium 4.6 mmol/L (3.5-5.1); Sodium 135 mmol/L (137-145)
[2022-01-04] MEDS: methylPREDNISolone SOD SUCCI 40 MG/ML 1 ML VIAL IV SCH (08:57)
[2022-01-04] MEDS: FUROSEMIDE 10 MG/ML 2 ML VIAL IV SCH (08:57)
[2022-01-04] MEDS: AZITHROMYCIN 500 MG TAB PO SCH (08:58)
[2022-01-04] MEDS ORDERED: METOPROLOL SUCCINATE (ER) 25 MG TAB.ER.24H PO SCH (09:00)
[2022-01-04] MEDS ORDERED: REGADENOSON 0.4 MG/5 ML SYRINGE IV PRN (09:05)
[2022-01-04] MEDS ORDERED: AMINOPHYLLINE 500 MG/20 ML VIAL IV PRN (09:05)
[2022-01-04] MEDS ORDERED: CAFFEINE CITRATE 60 MG/3 ML VIAL IV PRN (09:05)
[2022-01-04] MEDS: NICOTINE 21MG/24HR PATCH TRANSDERM SCH (09:07)
[2022-01-04] MEDS: carvediloL 3.125 MG TAB PO SCH ×2 (09:07→17:26)
[2022-01-04 11:26] LABS: Glucose,Whole Blood 446 mg/dL (75-99)
[2022-01-04] MEDS ORDERED: REGADENOSON 0.4 MG/5 ML SYRINGE IV ONE (12:00)
[2022-01-04] MEDS: SPIRONOLACTONE 25 MG TAB PO SCH (12:37)
--- NOTE | 2022-01-04 13:07 | P.PN ---
Subjective Progress Note Date: 01/04/22 HISTORY OF PRESENT ILLNESS: This is a 46-year-old female with a past medical history significant for diabetes and hyperlipidemia. Patient is a pack a day smoker. She reports alcohol use twice a week. 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 We have been asked to see the patient in consultation for congestive heart failure. Patient examined at the bedside. Patient states she thought she was getting bronchitis because she was coughing a lot and was short of breath. She states that she went to the urgent care and was given antibiotics for possible pneumonia. She states at home she was bringing up clear/white sputum. She denied any fever or chills. She reported some lower extremity swelling which has improved since coming to the hospital. She states her shortness of breath persisted so she decided to come to the emergency room. She denies any chest pain or pressure. Denies dizziness or lightheadedness. * EKG reveals sinus tachycardia with no signs of acute ischemia * Chest xray mild cardiomegaly without acute pulmonary process * Chest CT: No evidence for PE, cardiomegaly, trace ascites * Laboratory data: WBC 7.4. Hemoglobin 13.6. Platelet count 318. D-dimer 0.75. Sodium 136. Potassium 4.8. BUN 10. Creatinine 0.63. Troponin negative 1. ProBNP 3380. * Current home cardiac medications include Lipitor 20 mg at night and aspirin 81 mg at night 01/04/2022 Patient examined this morning at the bedside. Patient denies chest pain or pressure. She reports that her chest feels sore however this morning. She reports improvement in her shortness of breath. She remains on IV Lasix. Echocardiogram completed revealing ejection fraction 20-25% with moderate mitral regurgitation. PHYSICAL EXAM: VITAL SIGNS: Reviewed. GENERAL: Well-developed in no acute distress. HEENT: Head is normocephalic. Pupils are equal, round. Sclerae anicteric. Mucous membranes of the mouth are moist. Neck supple. No JVD or thyromegaly LUNGS: Respirations even and unlabored. Lungs diminished. HEART: Regular rate and rhythm. S1 and S2 heard. ABDOMEN: Soft. Nondistended. Nontender. EXTREMITIES: Normal range of motion. No clubbing or cyanosis. Peripheral pulses intact. Trace lower extremity edema NEUROLOGIC: Awake and alert. Oriented x 3. ASSESSMENT: Shortness of breath Possible COPD versus bronchitis with wheezing on exam New-onset heart failure with reduced EF Diabetes Hyperlipidemia Nicotine dependence PLAN: Discontinue IV lasix. Begin oral lasix 40mg daily Daily weights Accurate I&O Monitor kidney function Smoking cessation recommended Dr. Ayala spoke with patient regarding cardiac cath versus stress testing. Patient opted to have stress testing performed. Lenore scan ordered for tomorrow NPO at midnight Further recommendations pending patient's course Nurse practitioner note has been reviewed by physician. Signing provider agrees with the documented findings, assessment, and plan of care. Objective - Vital Signs Vital signs: Vital Signs Temp 97.7 F 01/04/22 08:00 Pulse 110 H 01/04/22 11:56 Resp 18 01/04/22 08:00 BP 122/86 01/04/22 08:00 Pulse Ox 97 01/04/22 08:00 FiO2 Intake & Output 01/03/22 01/04/22 01/04/22 18:59 06:59 18:59 Intake Total 716 Output Total 2049 1800 Balance -1334 -1800 Weight 80.7 kg Intake: Oral 716 Output: Urine 2049 1799 Other: Voiding Method Toilet Toilet Toilet - Labs CBC & Chem 7: 01/04/22 07:41 01/04/22 07:41 Labs: Abnormal Lab Results - Last 24 Hours (Table) 01/03/22 01/03/22 01/04/22 Range/Units 16:23 20:08 06:02 WBC (3.8-10.6) k/uL MCV (80.0-100.0) fL Neutrophils # (1.3-7.7) k/uL Lymphocytes # (1.0-4.8) k/uL Sodium (137-145) mmol/L BUN (7-17) mg/dL Glucose (74-99) mg/dL POC Glucose (mg/dL) 338 H 363 H 186 H (75-99) mg/dL Hemoglobin A1c (0.0-6.0) % 01/04/22 01/04/22 01/04/22 Range/Units 07:27 07:41 07:41 WBC (3.8-10.6) k/uL MCV (80.0-100.0) fL Neutrophils # (1.3-7.7) k/uL Lymphocytes # (1.0-4.8) k/uL Sodium 135 L (137-145) mmol/L BUN 18 H (7-17) mg/dL Glucose 189 H (74-99) mg/dL POC Glucose (mg/dL) 203 H (75-99) mg/dL Hemoglobin A1c 8.1 H (0.0-6.0) % 01/04/22 01/04/22 Range/Units 07:41 11:24 WBC 13.4 H (3.8-10.6) k/uL MCV 102.0 H (80.0-100.0) fL Neutrophils # 12.1 H (1.3-7.7) k/uL Lymphocytes # 0.7 L (1.0-4.8) k/uL Sodium (137-145) mmol/L BUN (7-17) mg/dL Glucose (74-99) mg/dL POC Glucose (mg/dL) 446 H (75-99) mg/dL Hemoglobin A1c (0.0-6.0) %
--- NOTE | 2022-01-04 13:20 | P.PN ---
Subjective Progress Note Date: 01/04/22 46-year-old male patient [facility] because of increased shortness of breath a few weeks duration. The patient went to an urgent care for symptoms of bronchitis and he was given antibiotics and steroids. He was also noticing some increased edema in lower extremities bilaterally. He denied having any orthopnea. He was coughing up some clear sputum. For that reason he came into the hospital and the chest x-ray at the time of admission showed cardiomegaly without any acute abnormalities. The patient's proBNP level was 3318. A CT angiogram was done and the patient was found to have no evidence of any pulmonary embolism. There was background cardiomegaly and trace ascites. The lungs were free of any consolidation or pleural effusion or pneumothorax. Some atelectatic changes were seen in the posterior aspect of the left upper lobe. Airways were essentially patent. The patient was negative for influenza A and B. The COVID 19 testing was also negative. His blood work showed a white cell count 7.4 with hemoglobin 13.6. D-dimer was at 0.75, electrodes were normal, renal function was normal, proBNP level was 3380. Currently, the patient is re ceiving treatment with IV Lasix 20 mg every 12 hours. He was also placed on DuoNeb neb last treatment [id number] and empiric antibiotic coverage for Zithromax. Is a chronic smoker is currently on a nicotine patch. He is known to have diabetes mellitus and hyperlipidemia. Echo of the heart has been ordered. He is currently on O2 and he is on 3 L with a pulse ox of 98%. No history of asthma. No history of emphysema. She is a chronic smoker and she's been smoking since the age of 20. 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 She has received COVID 19 vaccination 2. Covid 19 testing is been negative. 01/04/2022, the patient is feeling better and she is less short of breath. The patient was diagnosed having a combination of COPD exacerbation and the patient also was found to have systolic heart failure, acute and the patient was optimized with a combination of bronchodilators, steroids, diuretics and she is already feeling better and she is currently on room air oxygen. She remains on DuoNeb neb last treatment [id number] and she was taken off the IV Solu Medrol started on a prednisone burst taper. She remains on Lasix 40 mg by mouth daily. She is on Zithromax as an empiric antibiotic coverage. Echocardiogram showed systolic heart failure and the patient has an ejection fraction of around 25% with severely impaired LV. The RV is mildly dilated. Otherwise the patient is to continue she is have any angina. She patient is going to undergo a cardiac stress test tomorrow with a possibility of even having a cardiac catheterization at a later stage. Objective - Vital Signs Vital signs: Vital Signs Temp 97.7 F 01/04/22 08:00 Pulse 110 H 01/04/22 11:56 Resp 18 01/04/22 08:00 BP 122/86 01/04/22 08:00 Pulse Ox 97 01/04/22 08:00 FiO2 Intake & Output 01/03/22 01/04/22 01/04/22 18:59 06:59 18:59 Intake Total 716 Output Total 2049 1800 Balance -1334 -1800 Weight 80.7 kg Intake: Oral 716 Output: Urine 2049 1799 Other: Voiding Method Toilet Toilet Toilet - Exam General: [Alert and oriented, well nourished, no acute distress, on 3 liters/ min and she was switched to RA 02 Taken off the oxygen and she is currently on room air oxygen. She is able to speak Full sentences. Head exam was generally normal. There was no scleral icterus or corneal arcus. Mucous membranes were moist. Neck was supple and without jugular venous distension, thyromegaly, or carotid bruits. Carotids were easily palpable bilaterally. There was no adenopathy. Lungs sounds are diminished and the patient has prolongation of the exhalation phase of breathing and diffuse expiratory wheezes throughout the lung diane bilaterally Heart: [Tachycardic, regular rhythm, no murmur, gallop + pitting edema in bilateral lower extremities]. Abdomen: [Soft, non-tender, non-distended, normal bowel sounds, no masses]. Musculoskeletal: [Normal range of motion and strength, no tenderness or swelling]. Skin: [ Examination of the skin revealed no evidence of significant rashes, suspicious appearing nevi or other concerning lesions. Neurologic: Neurologically, the patient is awake and alert and the patient does not have any focal neurological deficit. Cranial nerves are essentially intact. Psychiatric: [Cooperative, appropriate mood and affect]. - Labs CBC & Chem 7: 01/04/22 07:41 01/04/22 07:41 Labs: Abnormal Lab Results - Last 24 Hours (Table) 01/03/22 01/03/22 01/04/22 Range/Units 16:23 20:08 06:02 WBC (3.8-10.6) k/uL MCV (80.0-100.0) fL Neutrophils # (1.3-7.7) k/uL Lymphocytes # (1.0-4.8) k/uL Sodium (137-145) mmol/L BUN (7-17) mg/dL Glucose (74-99) mg/dL POC Glucose (mg/dL) 338 H 363 H 186 H (75-99) mg/dL Hemoglobin A1c (0.0-6.0) % 01/04/22 01/04/22 01/04/22 Range/Units 07:27 07:41 07:41 WBC (3.8-10.6) k/uL MCV (80.0-100.0) fL Neutrophils # (1.3-7.7) k/uL Lymphocytes # (1.0-4.8) k/uL Sodium 135 L (137-145) mmol/L BUN 18 H (7-17) mg/dL Glucose 189 H (74-99) mg/dL POC Glucose (mg/dL) 203 H (75-99) mg/dL Hemoglobin A1c 8.1 H (0.0-6.0) % 01/04/22 01/04/22 Range/Units 07:41 11:24 WBC 13.4 H (3.8-10.6) k/uL MCV 102.0 H (80.0-100.0) fL Neutrophils # 12.1 H (1.3-7.7) k/uL Lymphocytes # 0.7 L (1.0-4.8) k/uL Sodium (137-145) mmol/L BUN (7-17) mg/dL Glucose (74-99) mg/dL POC Glucose (mg/dL) 446 H (75-99) mg/dL Hemoglobin A1c (0.0-6.0) % Assessment and Plan Plan: 1 acute hypoxic respiratory failure probably due to a component of chronic bronchitis with an acute exacerbation in addition to a component of CHF that needs to be further investigated. The patient is a chronic smoker. Currently she is bronchospastic and wheezy. Patient was also found to be in acute systolic heart failure with an ejection fraction of 20% 2 systolic heart failure with an ejection fraction of less than 20% needs further evaluation 3 COPD in exacerbation 4 chronic smoker 5 diabetes mellitus type 2 6 Hyperlipidemia cholesterol Plan Continue DuoNeb [id number] Stop the IV Solu Medrol start the patient prednisone burst taper Continue Zithromax as a empiric antibiotic coverage Switch the Lasix to oral Proceed with echocardiogram to evaluate LV function and the results were noted and the patient has an ejection fraction of less than 20%, cardiac stress test in a.m. Nicotine patch Smoking cessation counseling Outpatient PFT with a concern of this patient having chronic bronchitis related to chronic smoking Resume diabetic meds We'll continue to follow.
[2022-01-04 16:56] LABS: Glucose,Whole Blood 216 mg/dL (75-99)
--- NOTE | 2022-01-04 17:53 | P.PN ---
Subjective Progress Note Date: 01/04/22 Hospital course: Patient is a very pleasant 46-year-old female with a past medical history of prediabetes, hyperlipidemia, and nicotine dependence. She presented to the emergency department on 01/02/22 with a chief complaint of worsening dyspnea 3 weeks. Patient reports she was under the understanding that she had bronchitis and underwent steroid and antibiotic treatment but states she had no improvement in her dyspnea and began developing lower extremity edema. In the emergency department patient was seen and fully evaluated. She was found to have an elevated pro-BMP of 3380. Troponin was negative at less than 0.0123 draws. Chest x-ray revealing mild cardiomegaly and negative for acute cardiopulmonary process. Left lower extremity Doppler negative for DVT. CTA chest negative for PE revealing cardiomegaly and trace ascites. Patient was admitted under our services for acute heart failure with consultation to cardiology and pulmonology. Physical exam: Vital signs reviewed and stable. General: Nontoxic, no distress and appears stated age. Derm: Skin warm and dry, normal coloration for ethnicity. Head: Atraumatic, normocephalic and symmetric. Eyes: EOMs intact, no lid lag, and anicteric sclera Mouth: no lip lesions, mucus membranes moist Cardiovascular: regular rate and rhythm with normal S1S2, no murmur, positive posterior tibial pulses bilaterally, and cap refill < 2 seconds. Lungs: Respirations even, regular, and unlabored on room air. Lungs CTA bilaterally, no rhonchi, no rales, no wheezing, and no accessory muscle usage. Abdominal: soft, nontender to palpation, no guarding, no appreciable organomegaly Ext: ROM intact. No gross muscle atrophy, no edema, no contractures Neuro: Speech clear, face symmetrical and CN II-XII grossly intact with no noted focal neuro deficits Psych: Alert and oriented to person, place, time, and situation. Appropriate and pleasant affect. Assessment and Plan of Care: Acute systolic heart failure with EF less than 25% Acute hypoxic respiratory failure likely multifactorial secondary to acute on chronic bronchitis, acute COPD exacerbation, and acute systolic heart failure Sinus tachycardia, likely secondary to above Hyperlipidemia -Cardiology following, appreciate further recommendations -Pulmonology following, appreciate recommendations -Continue telemetry monitoring -Continue diuresis with Lasix 40 mg with close monitoring of I's and O's -Daily weights -Close monitoring of electrolyte values while diuresing and replace as needed -Continue cardiac medication regimen consisting of aspirin, atorvastatin, carvedilol, lisinopril, and Aldactone secondary to findings of EF less than 25%. -Nicotine patch -Smoking cessation -Continue oral prednisone 40 mg daily. Type II adg-qegnlgk-[id number] diabetes mellitus -Hold metformin and continue Glycemic protocol with NovoLog sliding scale along with scheduled NovoLog 5 units 3 times daily with meals. CODE STATUS: Full code DVT prophylaxis: heparin Discussed with: patient and RN Anticipated discharge date: Clinical course to determine Anticipated discharge place: home A total of 39 minutes was spent on the care of this complex patient more than 50% of the time was spent in counseling and care coordination. Carlos Singletary NP rendered care for this patient independently, reviewed the findings and plan as documented in the note above. I did not physically speak with or examine the patient on this date. Objective - Vital Signs Vital signs: Vital Signs Temp 97.6 F 01/04/22 04:00 Pulse 110 H 01/04/22 07:51 Resp 15 01/04/22 04:00 BP 107/74 01/04/22 04:00 Pulse Ox 97 01/04/22 04:00 FiO2 Intake & Output 01/03/22 01/04/22 01/04/22 18:59 06:59 18:59 Intake Total 716 Output Total 2049 1800 Balance -1334 -1800 Weight 80.7 kg Intake: Oral 716 Output: Urine 2049 1799 Other: Voiding Method Toilet Toilet - Labs CBC & Chem 7: 01/04/22 07:41 01/04/22 07:41 Labs: Abnormal Lab Results - Last 24 Hours (Table) 01/03/22 01/03/22 01/03/22 Range/Units 08:38 11:31 16:23 WBC (3.8-10.6) k/uL MCV (80.0-100.0) fL Neutrophils # (1.3-7.7) k/uL Lymphocytes # (1.0-4.8) k/uL Sodium 133 L (137-145) mmol/L Carbon Dioxide 21 L (22-30) mmol/L Glucose 372 H (74-99) mg/dL POC Glucose (mg/dL) 369 H 338 H (75-99) mg/dL Total Protein 6.2 L (6.3-8.2) g/dL 01/03/22 01/04/22 01/04/22 Range/Units 20:08 06:02 07:27 WBC (3.8-10.6) k/uL MCV (80.0-100.0) fL Neutrophils # (1.3-7.7) k/uL Lymphocytes # (1.0-4.8) k/uL Sodium (137-145) mmol/L Carbon Dioxide (22-30) mmol/L Glucose (74-99) mg/dL POC Glucose (mg/dL) 363 H 186 H 203 H (75-99) mg/dL Total Protein (6.3-8.2) g/dL 01/04/22 Range/Units 07:41 WBC 13.4 H (3.8-10.6) k/uL MCV 102.0 H (80.0-100.0) fL Neutrophils # 12.1 H (1.3-7.7) k/uL Lymphocytes # 0.7 L (1.0-4.8) k/uL Sodium (137-145) mmol/L Carbon Dioxide (22-30) mmol/L Glucose (74-99) mg/dL POC Glucose (mg/dL) (75-99) mg/dL Total Protein (6.3-8.2) g/dL
[2022-01-04] MEDS: traZODone HCL 50 MG TAB PO SCH (20:08)
[2022-01-04] MEDS: ASPIRIN 81 MG PO SCH (20:08)
[2022-01-04] MEDS: ATORVASTATIN 20 MG TAB PO SCH (20:08)
[2022-01-04 20:11] LABS: Glucose,Whole Blood 164 mg/dL (75-99)
[2022-01-05] MEDS: HEPARIN SODIUM,PORCINE/PF 5,000 UNIT/0.5 ML SYRINGE SQ SCH ×5 (01:19→21:41)
[2022-01-05 06:06] LABS: Glucose,Whole Blood 135 mg/dL (75-99)
[2022-01-05] MEDS: INSULIN ASPART (NovoLOG) 100 UNIT/ML VIAL SQ SCH ×7 (06:06→21:37)
[2022-01-05] MEDS: carvediloL 3.125 MG TAB PO SCH ×2 (06:07→18:19)
[2022-01-05 08:03] LABS: HCT 42.2 % (34.0-46.0); Hypochromasia Slight; MCH 31.4 pg (25.0-35.0); MCHC 30.7 g/dL (31.0-37.0); MCV 102.3 fL (80.0-100.0); Macrocytosis Slight; Mean Platelet Volume 7.3; Platelet Count 305 k/uL (150-450); RBC 4.13 m/uL (3.80-5.40); RDW 13.4 % (11.5-15.5); WBC 9.7 k/uL (3.8-10.6)
[2022-01-05] MEDS: IPRATROPIUM-ALBUTEROL 3 ML NEB INHALATION SCH ×3 (08:03→20:32)
[2022-01-05 08:27] LABS: ALT 38 U/L (4-34); AST 47 U/L (14-36); African American GFR (CKD) >90 (>60 ml/min/1.73 sqM); Albumin 3.6 g/dL (3.5-5.0); Alkaline Phosphatase 71 U/L (38-126); Anion Gap 8 mmol/L; Blood Urea Nitrogen 29 mg/dL (7-17); Calcium 8.4 mg/dL (8.4-10.2); Carbon Dioxide 23 mmol/L (22-30); Chloride 104 mmol/L (98-107); Glucose 146 mg/dL (74-99); Magnesium 2.2 mg/dL (1.6-2.3); Non-African American GFR(CKD) 90 (>60 ml/min/1.73 sqM); Potassium 4.4 mmol/L (3.5-5.1); Sodium 135 mmol/L (137-145); Total Bilirubin 0.7 mg/dL (0.2-1.3); Total Protein 5.9 g/dL (6.3-8.2)
[2022-01-05] MEDS: SPIRONOLACTONE 25 MG TAB PO SCH (08:43)
[2022-01-05] MEDS: AZITHROMYCIN 500 MG TAB PO SCH (08:44)
[2022-01-05] MEDS: FUROSEMIDE 40 MG TAB PO SCH (08:44)
[2022-01-05] MEDS: NICOTINE 21MG/24HR PATCH TRANSDERM SCH (08:44)
[2022-01-05] MEDS: predniSONE 20 MG TAB PO SCH (08:44)
--- NOTE | 2022-01-05 10:46 | P.PN ---
Subjective Progress Note Date: 01/05/22 46-year-old male patient [facility] because of increased shortness of breath a few weeks duration. The patient went to an urgent care for symptoms of bronchitis and he was given antibiotics and steroids. He was also noticing some increased edema in lower extremities bilaterally. He denied having any orthopnea. He was coughing up some clear sputum. For that reason he came into the hospital and the chest x-ray at the time of admission showed cardiomegaly without any acute abnormalities. The patient's proBNP level was 3318. A CT angiogram was done and the patient was found to have no evidence of any pulmonary embolism. There was background cardiomegaly and trace ascites. The lungs were free of any consolidation or pleural effusion or pneumothorax. Some atelectatic changes were seen in the posterior aspect of the left upper lobe. Airways were essentially patent. The patient was negative for influenza A and B. The COVID 19 testing was also negative. His blood work showed a white cell count 7.4 with hemoglobin 13.6. D-dimer was at 0.75, electrodes were normal, renal function was normal, proBNP level was 3380. Currently, the patient is re ceiving treatment with IV Lasix 20 mg every 12 hours. He was also placed on DuoNeb neb last treatment [id number] and empiric antibiotic coverage for Zithromax. Is a chronic smoker is currently on a nicotine patch. He is known to have diabetes mellitus and hyperlipidemia. Echo of the heart has been ordered. He is currently on O2 and he is on 3 L with a pulse ox of 98%. No history of asthma. No history of emphysema. She is a chronic smoker and she's been smoking since the age of 20. 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 She has received COVID 19 vaccination 2. Covid 19 testing is been negative. 01/04/2022, the patient is feeling better and she is less short of breath. The patient was diagnosed having a combination of COPD exacerbation and the patient also was found to have systolic heart failure, acute and the patient was optimized with a combination of bronchodilators, steroids, diuretics and she is already feeling better and she is currently on room air oxygen. She remains on DuoNeb neb last treatment [id number] and she was taken off the IV Solu Medrol started on a prednisone burst taper. She remains on Lasix 40 mg by mouth daily. She is on Zithromax as an empiric antibiotic coverage. Echocardiogram showed systolic heart failure and the patient has an ejection fraction of around 25% with severely impaired LV. The RV is mildly dilated. Otherwise the patient is to continue she is have any angina. She patient is going to undergo a cardiac stress test tomorrow with a possibility of even having a cardiac catheterization at a later stage. 2021, the patient completed the cardiac stress test and the results are not available yet. Meanwhile, earlier this morning, her chest became tight again and she started having some increased cough and wheezing. On examination, she remains bronchospastic. Noted the patient was taken off the IV Solu Medrol yesterday and she was started on a prednisone burst taper. She is also on oral Lasix and oral Zithromax as an empiric antibiotic coverage. Her left ventricle ejection fraction is less then 30% in order of 25%. The blood work was reviewed. The patient is a smoker and she's been smoking since the age of 20. She may have underlying COPD and she has only pro-air rescue inhaler at home. She does not have a home nebulizer for now. Her Covid 19 testing was negative at a time of admission. No angina. Improvement in the swelling in lower extremities. Objective - Vital Signs Vital signs: Vital Signs Temp 97.9 F 01/04/22 20:00 Pulse 110 H 01/05/22 08:16 Resp 21 01/05/22 04:00 BP 102/72 01/05/22 04:00 Pulse Ox 96 01/05/22 04:00 FiO2 Intake & Output 01/04/22 01/05/22 01/05/22 18:59 06:59 18:59 Intake Total 1000 485 Output Total 750 Balance 1000 -265 Intake: Oral 1000 485 Output: Urine 750 Other: Voiding Method Toilet Toilet - Exam General: [Alert and oriented, well nourished, no acute distress, on 3 liters/ min and she was switched to RA 02 Taken off the oxygen and she is currently on room air oxygen. She is able to speak Full sentences. Head exam was generally normal. There was no scleral icterus or corneal arcus. Mucous membranes were moist. Neck was supple and without jugular venous distension, thyromegaly, or carotid bruits. Carotids were easily palpable bilaterally. There was no adenopathy. Lungs sounds are diminished and the patient has prolongation of the exhalation phase of breathing and diffuse expiratory wheezes throughout the lung diane bilaterally Heart: [Tachycardic, regular rhythm, no murmur, gallop + pitting edema in bilateral lower extremities]. Abdomen: [Soft, non-tender, non-distended, normal bowel sounds, no masses]. Musculoskeletal: [Normal range of motion and strength, no tenderness or swelling]. Skin: [ Examination of the skin revealed no evidence of significant rashes, suspicious appearing nevi or other concerning lesions. Neurologic: Neurologically, the patient is awake and alert and the patient does not have any focal neurological deficit. Cranial nerves are essentially intact. Psychiatric: [Cooperative, appropriate mood and affect]. - Labs CBC & Chem 7: 01/05/22 07:17 01/05/22 07:17 Labs: Abnormal Lab Results - Last 24 Hours (Table) 01/04/22 01/04/22 01/04/22 Range/Units 07:41 11:24 16:54 MCV (80.0-100.0) fL MCHC (31.0-37.0) g/dL Sodium (137-145) mmol/L BUN (7-17) mg/dL Glucose (74-99) mg/dL POC Glucose (mg/dL) 446 H 216 H (75-99) mg/dL Hemoglobin A1c 8.1 H (0.0-6.0) % AST (14-36) U/L ALT (4-34) U/L Total Protein (6.3-8.2) g/dL 01/04/22 01/05/22 01/05/22 Range/Units 20:09 06:05 07:17 MCV 102.3 H (80.0-100.0) fL MCHC 30.7 L (31.0-37.0) g/dL Sodium (137-145) mmol/L BUN (7-17) mg/dL Glucose (74-99) mg/dL POC Glucose (mg/dL) 164 H 135 H (75-99) mg/dL Hemoglobin A1c (0.0-6.0) % AST (14-36) U/L ALT (4-34) U/L Total Protein (6.3-8.2) g/dL 01/05/22 Range/Units 07:17 MCV (80.0-100.0) fL MCHC (31.0-37.0) g/dL Sodium 135 L (137-145) mmol/L BUN 29 H (7-17) mg/dL Glucose 146 H (74-99) mg/dL POC Glucose (mg/dL) (75-99) mg/dL Hemoglobin A1c (0.0-6.0) % AST 47 H (14-36) U/L ALT 38 H (4-34) U/L Total Protein 5.9 L (6.3-8.2) g/dL Assessment and Plan Plan: 1 acute hypoxic respiratory failure probably due to a component of chronic bronchitis with an acute exacerbation in addition to a component of CHF that needs to be further investigated. The patient is a chronic smoker. Currently she is bronchospastic and wheezy. Patient was also found to be in acute systolic heart failure with an ejection fraction of 20%, and oxidation is improving and the patient is less bronchospastic although her bronchospasm not completely subsided. The patient also underwent a cardiac stress test and the results are still pending for now. 2 systolic heart failure with an ejection fraction of less than 20% needs further evaluation 3 COPD in exacerbation 4 chronic smoker 5 diabetes mellitus type 2 6 Hyperlipidemia cholesterol Plan Continue DuoNeb [id number] Arranging home nebulizer start the patient on Symbicort 2 puffs twice a day Prednisone burst taper Completed total of 5 day course of Zithromax Oral Lasix Echocardiogram was noted and the patient underwent a cardiac stress test, pending results Patient is currently on Coreg 3.125 mg twice a day, Lasix 40 mg by mouth daily and lisinopril 2.5 mg by mouth daily. She was also started on Aldactone 12.5 mg by mouth daily. This was started to optimize her CHF Nicotine patch Smoking cessation counseling Outpatient PFT with a concern of this patient having chronic bronchitis related to chronic smoking Resume diabetic meds We'll continue to follow.
[2022-01-05 11:36] LABS: Glucose,Whole Blood 182 mg/dL (75-99)
--- NOTE | 2022-01-05 11:38 | NM ---
EXAMINATION TYPE: NM stress lexiscan cardiolite DATE OF EXAM: 01/05/2022 COMPARISON: NONE HISTORY: Cardiomyopathy TECHNIQUE: After the intravenous administration of 9.7 mCi Tc 99m Sestamibi - Cardiolite resting SPE CT images acquired 45 minutes post injection. The patient received 0.4mg Lexiscan, 24.3 mCi Tc 99m Sestamibi - Stress images obtained [address] injection FINDINGS: Review of stress and rest SPECT images demonstrates no distinct perfusion abnormality. Gated analysi s shows global hypokinesis of the left ventricular cabral with an estimated left ventricular ejection fraction of 15 %. IMPRESSION: No scintigraphic evidence for reversible ischemia. Correlate with echocardiographic findings to asses s for ejection fraction
--- NOTE | 2022-01-05 13:32 | PN ---
PROGRESS NOTE DATE OF SERVICE: 01/05/2022 This 46-year-old woman who was admitted with CHF acute exacerbation also had global hypokinesia, possibly indicating ischemic cardiomyopathy. Lexiscan stress test was also done. Cardiology following the patient. Patient is on diuretics. Pulmonary is also following the patient closely. PAST MEDICAL HISTORY: History reviewed. REVIEW OF SYSTEMS: Review system as mentioned earlier. CURRENT MEDICATIONS: Reviewed and include DuoNeb, aspirin, dose and rest of medication noted. PHYSICAL EXAMINATION: Pulse is 107, blood pressure 109/80, respiration 18. HEENT: Conjunctivae normal. Neck is no JVD. Cardiovascular system: S1, S2. Respirations: Bilateral scattered rhonchi and crackles. Abdomen: Soft, nontender. Nervous system: No focal deficits. LABS: Reviewed and chest x-ray also reviewed personally. ASSESSMENT: 1. Congestive heart failure, acute exacerbation with acute systolic dysfunction with possible cardiomyopathy of undetermined origin, ejection fraction 25% with global hypokinesia. 2. Acute hypoxic respiratory failure. 3. Hyperlipidemia. 4. Sinus tachycardia. RECOMMENDATIONS AND DISCUSSION: I recommend to continue current medications, management and symptomatic treatment. Otherwise optimize diuretics. Otherwise continue the bronchodilators. Monitor insulin closely. Guarded prognosis because of multiple complex medical issues and further recommendations for steroids. See orders for details. MMODL / IJN: [id number] /
--- NOTE | 2022-01-05 14:04 | CA ---
Lexiscan Nuclear Stress Test Report Name: Myriam Melo Exam Date: 01/05/2022 09:16 Exam Location: [place] Stress Ht (in): 62 Wt (lb): 177 BSA: 1.81 Ordering Phys: Thuy Calle Referring Phys: TACO,, Technologist: Matti Tipton Age: 46 Gender: F : 1975 Procedure CPT: Indications: Reflex order-Stress test ICD-10 Codes: Patient History: CHEST PAIN, DIFFICULTY IN BREATHING, NUMBNESS IN FACE/NECK, DIABETIC, ELEVATED CHOLESTEROL LEVELS, TOBACCO USE 1 PPD X 30 YEARS Medications: METFORMIN,,,,,, ASA 81 mg,,,,, Meds past 24 hrs: Pretest Chest Pain: STRESS TEST Lexiscan Protocol Exercise Duration (min:sec): 01:[address] Depressions (mm): Angina Score: Delarosa Score: Resting HR (bpm): 92 Peak HR (bpm): 101 Resting BP (mmHg): 116 / 84 Peak BP (mmHg): 127 / 90 MPHR: 175 Target HR: 149 % MPHR: 58 METS: 1.0 Total Dose: Peak Dose: Atropine: Double Product: 12701 BP Response: Stress Termination: Completion of Infusion Stress Symptoms: CHEST PAIN,FLUSHED Stress Summary: ECG ANALYSIS Resting ECG: Stress ECG: CONCLUSIONS Nondiagnostic echocardiogram stress testing and response to Lexiscan Please follow up on the Cardiolite portion Dr. Benito Cartwright MD (Electronically Signed) Final Date: 05 Jan 2022 14:03
[2022-01-05 17:04] LABS: Glucose,Whole Blood 327 mg/dL (75-99)
--- NOTE | 2022-01-05 17:11 | P.PN ---
Subjective Progress Note Date: 01/05/22 This is a 46-year-old female with a past medical history significant for diabetes and hyperlipidemia. Patient is a pack a day smoker. She reports alcohol use twice a week. Patient does not follow with a gold layer. We have been asked to see the patient in consultation for congestive heart failure. Patient examined at the bedside. Patient states she thought she was getting bronchitis because she was coughing a lot and was short of breath. She states that she went to the urgent care and was given antibiotics for possible pneumonia. She states at home she was bringing up clear/white sputum. She denied any fever or chills. She reported some lower extremity swelling which has improved since coming to the hospital. She states her shortness of breath persisted so she decided to come to the emergency room. She denies any chest pain or pressure. Denies dizziness or lightheadedness. * EKG reveals sinus tachycardia with no signs of acute ischemia * Chest xray mild cardiomegaly without acute pulmonary process * Chest CT: No evidence for PE, cardiomegaly, trace ascites * Laboratory data: WBC 7.4. Hemoglobin 13.6. Platelet count 318. D-dimer 0.75. Sodium 136. Potassium 4.8. BUN 10. Creatinine 0.63. Troponin negative 1. ProBNP 3380. * Current home cardiac medications include Lipitor 20 mg at night and aspirin 81 mg at night 01/05/2022: This patient is admitted to the hospital with picture of bronchitis and cardiomyopathy. Echo Cardigan showed severe impaired LV function. Patient is initiated on beta blockers, diuretics and EMI inhibitor. Patient is feeling much better, had a Lexiscan stress test today. This did not reveal any evidence of inducible ischemia. Again, showed severe cardiomyopathy. The etiology of cardiac myopathy is not clear but could be related to viral myocarditis. Lungs are much clearer with rare rhonchi and wheezing. Heart is regular. Edema is cleared she'll continue current medical therapy. Follow-up in the office in one week. Further recommendation depending upon the clinical course. May consider MRI as an outpatient. If LV function doesn't improve, patient may need cardiac defibrillator. May also condition LifeVest. Objective - Vital Signs Vital signs: Vital Signs Temp 98.1 F 01/05/22 08:00 Pulse 96 01/05/22 14:00 Resp 18 01/05/22 14:00 BP 104/78 01/05/22 12:00 Pulse Ox 99 01/05/22 12:00 FiO2 Intake & Output 01/04/22 01/05/22 01/05/22 18:59 06:59 18:59 Intake Total 1000 485 Output Total 750 Balance 1000 -265 Intake: Oral 1000 485 Output: Urine 750 Other: Voiding Method Toilet Toilet - Exam GENERAL EXAM: Patient is alert and oriented and doesn't appear to be in any acute distress HEENT: Normocephalic. Normal reaction of pupils, equal size, normal range of extraocular motion. No erythema or exudates in the throat. NECK: No masses, no nuchal rigidity. CHEST: No chest wall deformity. LUNGS: Scattered wheezes. Axonal defaults HEART: [S1 and S2 normal with no audible mumurs or gallops. Regular rhythm, femorals equal on both sides..] ABDOMEN: No hepatosplenomegaly, normal bowel sounds, no guarding or rigidity. SKIN: No rashes CENTRAL NERVOUS SYSTEM: No focal deficits. EXTREMITIES: [Resolving edema - Labs CBC & Chem 7: 01/05/22 07:17 01/05/22 07:17 Labs: Abnormal Lab Results - Last 24 Hours (Table) 01/04/22 01/05/22 01/05/22 Range/Units 20:09 06:05 07:17 MCV 102.3 H (80.0-100.0) fL MCHC 30.7 L (31.0-37.0) g/dL Sodium (137-145) mmol/L BUN (7-17) mg/dL Glucose (74-99) mg/dL POC Glucose (mg/dL) 164 H 135 H (75-99) mg/dL AST (14-36) U/L ALT (4-34) U/L Total Protein (6.3-8.2) g/dL 01/05/22 01/05/22 01/05/22 Range/Units 07:17 11:25 16:58 MCV (80.0-100.0) fL MCHC (31.0-37.0) g/dL Sodium 135 L (137-145) mmol/L BUN 29 H (7-17) mg/dL Glucose 146 H (74-99) mg/dL POC Glucose (mg/dL) 182 H 327 H (75-99) mg/dL AST 47 H (14-36) U/L ALT 38 H (4-34) U/L Total Protein 5.9 L (6.3-8.2) g/dL Assessment and Plan (1) Cardiomyopathy Current Visit: Yes Status: Acute Code(s): I42.9 - CARDIOMYOPATHY, UNSPECIFIED SNOMED Code(s): 48378569 (2) Acute systolic CHF (congestive heart failure) Current Visit: Yes Status: Acute Code(s): I50.21 - ACUTE SYSTOLIC (CONGESTIVE) HEART FAILURE SNOMED Code(s): 336691584 (3) Bronchitis Current Visit: Yes Status: Acute Code(s): J40 - BRONCHITIS, NOT SPECIFIED ACUTE OR CHRONIC SNOMED Code(s): 26508368 Plan: Continue current medical therapy. May consider LifeVest before discharge. If LV function doesn't improve, patient may need defibrillator in the future. Prognosis is guarded
[2022-01-05 20:37] LABS: Glucose,Whole Blood 358 mg/dL (75-99)
[2022-01-05] MEDS: ASPIRIN 81 MG PO SCH (21:36)
[2022-01-05] MEDS: BENZONATATE 100 MG CAP PO PRN (21:37)
[2022-01-05] MEDS: traZODone HCL 50 MG TAB PO SCH (21:37)
[2022-01-05] MEDS: ATORVASTATIN 20 MG TAB PO SCH (21:37)
[2022-01-06 05:58] LABS: Glucose,Whole Blood 142 mg/dL (75-99)
[2022-01-06] MEDS: INSULIN ASPART (NovoLOG) 100 UNIT/ML VIAL SQ SCH ×7 (06:57→20:32)
[2022-01-06] MEDS: carvediloL 3.125 MG TAB PO SCH ×2 (06:57→17:20)
[2022-01-06] MEDS: BENZONATATE 100 MG CAP PO PRN (06:59)
[2022-01-06] MEDS: IPRATROPIUM-ALBUTEROL 3 ML NEB INHALATION SCH ×3 (08:20→20:41)
[2022-01-06] MEDS: HEPARIN SODIUM,PORCINE/PF 5,000 UNIT/0.5 ML SYRINGE SQ SCH ×2 (09:05→16:40)
[2022-01-06] MEDS: SPIRONOLACTONE 25 MG TAB PO SCH (09:11)
[2022-01-06] MEDS: NICOTINE 21MG/24HR PATCH TRANSDERM SCH (09:12)
[2022-01-06] MEDS: FUROSEMIDE 40 MG TAB PO SCH (09:12)
[2022-01-06] MEDS: predniSONE 20 MG TAB PO SCH (09:12)
[2022-01-06 09:18] LABS: Glucose,Whole Blood 289 mg/dL (75-99)
--- NOTE | 2022-01-06 10:43 | P.PN ---
Subjective Progress Note Date: 01/06/22 HISTORY OF PRESENT ILLNESS: This is a 46-year-old female with a past medical history significant for diabetes and hyperlipidemia. Patient is a pack a day smoker. She reports alcohol use twice a week. Patient does not follow with a section hand. We have been asked to see the patient in consultation for congestive heart failure. Patient examined at the bedside. Patient states she thought she was getting bronchitis because she was coughing a lot and was short of breath. She states that she went to the urgent care and was given antibiotics for possible pneumonia. She states at home she was bringing up clear/white sputum. She denied any fever or chills. She reported some lower extremity swelling which has improved since coming to the hospital. She states her shortness of breath persisted so she decided to come to the emergency room. She denies any chest pain or pressure. Denies dizziness or lightheadedness. * EKG reveals sinus tachycardia with no signs of acute ischemia * Chest xray mild cardiomegaly without acute pulmonary process * Chest CT: No evidence for PE, cardiomegaly, trace ascites * Laboratory data: WBC 7.4. Hemoglobin 13.6. Platelet count 318. D-dimer 0.75. Sodium 136. Potassium 4.8. BUN 10. Creatinine 0.63. Troponin negative 1. ProBNP 3380. * Current home cardiac medications include Lipitor 20 mg at night and aspirin 81 mg at night 01/04/2022 Patient examined this morning at the bedside. Patient denies chest pain or pressure. She reports that her chest feels sore however this morning. She reports improvement in her shortness of breath. She remains on IV Lasix. Echocardiogram completed revealing ejection fraction 20-25% with moderate mitral regurgitation. 01/06/2022 Patient examined this morning to bedside. Patient denies chest pain or pressure. She denies shortness of breath. Vital signs are stable. PHYSICAL EXAM: VITAL SIGNS: Reviewed. GENERAL: Well-developed in no acute distress. HEENT: Head is normocephalic. Pupils are equal, round. Sclerae anicteric. Mucous membranes of the mouth are moist. Neck supple. No JVD or thyromegaly LUNGS: Respirations even and unlabored. Lungs diminished. HEART: Regular rate and rhythm. S1 and S2 heard. ABDOMEN: Soft. Nondistended. Nontender. EXTREMITIES: Normal range of motion. No clubbing or cyanosis. Peripheral pulses intact. Trace lower extremity edema NEUROLOGIC: Awake and alert. Oriented x 3. ASSESSMENT: Shortness of breath Possible COPD versus bronchitis with wheezing on exam New-onset heart failure with reduced EF cardiomyopathy Diabetes Hyperlipidemia Nicotine dependence PLAN: continue current cardiac medications patient is currently stable from a cardiac standpoint Patient will receive a LifeVest at the time of discharge secondary to severe cardiomyopathy to prevent sudden cardiac Further recommendations pending patient's course Nurse practitioner note has been reviewed by physician. Signing provider agrees with the documented findings, assessment, and plan of care. Objective - Vital Signs Vital signs: Vital Signs Temp 98.2 F 01/06/22 08:57 Pulse 94 01/06/22 08:57 Resp 16 01/06/22 09:01 BP 97/74 01/06/22 08:57 Pulse Ox 97 01/06/22 08:57 FiO2 Intake & Output 01/05/22 01/06/22 01/06/22 18:59 06:59 18:59 Intake Total 240 800 560 Output Total 1350 Balance 240 -550 560 Weight 81.2 kg Intake: Oral 240 800 560 Output: Urine 1350 Other: Voiding Method Toilet Toilet - Labs CBC & Chem 7: 01/05/22 07:17 01/05/22 07:17 Labs: Abnormal Lab Results - Last 24 Hours (Table) 01/05/22 01/05/22 01/05/22 Range/Units 11:25 16:58 20:36 POC Glucose (mg/dL) 182 H 327 H 358 H (75-99) mg/dL 01/05/22 01/06/22 01/06/22 Range/Units 20:36 05:57 09:16 POC Glucose (mg/dL) 358 H 142 H 289 H (75-99) mg/dL 01/06/22 Range/Units 09:16 POC Glucose (mg/dL) 289 H (75-99) mg/dL
[2022-01-06] MEDS ORDERED: INSULIN ASPART (NovoLOG) 100 UNIT/ML VIAL SQ ONE (12:30)
[2022-01-06] MEDS ORDERED: IPRATROPIUM-ALBUTEROL 3 ML NEB ONE (13:00)
--- NOTE | 2022-01-06 14:42 | P.PN ---
Subjective Progress Note Date: 01/06/22 46-year-old male patient admitted to [facility] because of increased shortness of breath a few weeks duration. The patient went to an urgent care for symptoms of bronchitis and he was given antibiotics and steroids. He was also noticing some increased edema in lower extremities bilaterally. He denied having any orthopnea. He was coughing up some clear sputum. For that reason he came into the hospital and the chest x-ray at the time of admission showed cardiomegaly without any acute abnormalities. The patient's proBNP level was 3318. A CT angiogram was done and the patient was found to have no evidence of any pulmonary embolism. There was background cardiomegaly and trace ascites. The lungs were free of any consolidation or pleural effusion or pneumothorax. Some atelectatic changes were seen in the posterior aspect of the left upper lobe. Airways were essentially patent. The patient was negative for influenza A and B. The COVID 19 testing was also negative. His blood work showed a white cell count 7.4 with hemoglobin 13.6. D-dimer was at 0.75, electrodes were normal, renal function was normal, proBNP level was 3380. Currently, the patient is receiving treatment with IV Lasix 20 mg every 12 hours. He was also placed on DuoNeb neb last treatment [id number] and empiric antibiotic coverage for Zithromax. Is a chronic smoker is currently on a nicotine patch. He is known to have diabetes mellitus and hyperlipidemia. Echo of the heart has been ordered. He is currently on O2 and he is on 3 L with a pulse ox of 98%. No history of asthma. No history of emphysema. She is a chronic smoker and she's been smoking since the age of 20. 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 She has received COVID 19 vaccination 2. Covid 19 testing is been negative. 01/04/2022, the patient is feeling better and she is less short of breath. The patient was diagnosed having a combination of COPD exacerbation and the patient also was found to have systolic heart failure, acute and the patient was optimized with a combination of bronchodilators, steroids, diuretics and she is already feeling better and she is currently on room air oxygen. She remains on DuoNeb neb last treatment [id number] and she was taken off the IV Solu Medrol started on a prednisone burst taper. She remains on Lasix 40 mg by mouth daily. She is on Zithromax as an empiric antibiotic coverage. Echocardiogram showed systolic heart failure and the patient has an ejection fraction of around 25% with severely impaired LV. The RV is mildly dilated. Otherwise the patient is to continue she is have any angina. She patient is going to undergo a cardiac stress test tomorrow with a possibility of even having a cardiac catheterization at a later stage. 2021, the patient completed the cardiac stress test and the results are not available yet. Meanwhile, earlier this morning, her chest became tight again and she started having some increased cough and wheezing. On examination, she remains bronchospastic. Noted the patient was taken off the IV Solu Medrol yesterday and she was started on a prednisone burst taper. She is also on oral Lasix and oral Zithromax as an empiric antibiotic coverage. Her left ventricle ejection fraction is less then 30% in order of 25%. The blood work was reviewed. The patient is a smoker and she's been smoking since the age of 20. She may have underlying COPD and she has only pro-air rescue inhaler at home. She does not have a home nebulizer for now. Her Covid 19 testing was negative at a time of admission. No angina. Improvement in the swelling in lower extremities. The patient is seen today 01/06/2022 in follow-up in the selective care unit. She is up ambulating in the room. Awake and alert in no acute distress. M aintaining good O2 saturations in the 90s on room air. No worsening shortness of breath, cough or congestion. No chest tightness or wheezing. No chest pain. Plan is for a LifeVest prior to her discharge. Blood sugar 142. She is continued on Lasix 40 mg daily. Heparin for DVT prophylaxis. NicoDerm patch in place. Objective - Vital Signs Vital signs: Vital Signs Temp 98.2 F 01/06/22 08:57 Pulse 94 01/06/22 08:57 Resp 16 01/06/22 09:01 BP 97/74 01/06/22 08:57 Pulse Ox 97 01/06/22 08:57 FiO2 Intake & Output 01/05/22 01/06/22 01/06/22 18:59 06:59 18:59 Intake Total 240 800 560 Output Total 1350 Balance 240 -550 560 Weight 81.2 kg Intake: Oral 240 800 560 Output: Urine 1350 Other: Voiding Method Toilet Toilet - Exam GENERAL EXAM: Alert, active, pleasant 46-year-old female, on room air, comfortable in no apparent distress. HEAD: Normocephalic. EYES: Normal reaction of pupils, equal size. NOSE: Clear with pink turbinates. THROAT: No erythema or exudates. NECK: No masses, no JVD. CHEST: No chest wall deformity. LUNGS: Equal air entry with faint end expiratory wheeze. CVS: S1 and S2 normal with no audible murmur, regular rhythm. ABDOMEN: No hepatosplenomegaly, normal bowel sounds, no guarding or rigidity. SPINE: No scoliosis or deformity SKIN: No rashes CENTRAL NERVOUS SYSTEM: No focal deficits, tone is normal in all 4 extremities. EXTREMITIES: There is no peripheral edema. No clubbing, no cyanosis. Peripheral pulses are intact. - Labs CBC & Chem 7: 01/05/22 07:17 01/05/22 07:17 Labs: Abnormal Lab Results - Last 24 Hours (Table) 01/05/22 01/05/22 01/05/22 Range/Units 11:25 16:58 20:36 POC Glucose (mg/dL) 182 H 327 H 358 H (75-99) mg/dL 01/05/22 01/06/22 01/06/22 Range/Units 20:36 05:57 09:16 POC Glucose (mg/dL) 358 H 142 H 289 H (75-99) mg/dL 01/06/22 Range/Units 09:16 POC Glucose (mg/dL) 289 H (75-99) mg/dL Assessment and Plan Assessment: 1 acute hypoxic respiratory failure probably due to a component of chronic bronchitis with an acute exacerbation in addition to a component of CHF that needs to be further investigated. The patient is a chronic smoker. Currently she is bronchospastic and wheezy. Patient was also found to be in acute systolic heart failure with an ejection fraction of 20%, and oxidation is impr oving and the patient is less bronchospastic although her bronchospasm not completely subsided. The patient also underwent a cardiac stress test and the results are negative for ischemia. 2 systolic heart failure with an ejection fraction of less than 20% needs further evaluation 3 COPD in exacerbation 4 chronic smoker 5 diabetes mellitus type 2 6 Hyperlipidemia cholesterol Plan The patient was seen and evaluated Table from the pulmonary standpoint Continue Symbicort and albuterol Complete a prednisone taper Plan is for LifeVest placement Follow-up in the office in 1-2 weeks' Educated regarding the importance of complete smoking cessation I have personally seen and examined the patient, performed the documentation and the assessment and plan as written. Number of minutes spent on the visit: 10. I have personally seen and examined the patient and reviewed the documentation. I performed a joint evaluation with the nurse practitioner in this evaluation was done more than 20 minutes. I fully agree with the documentation above and the plan of care.. Clinically the patient is improving. She had a combination of COPD and CHF exacerbation. The predominant and concerning pathology remains in CHF. The patient was placed on medication to optimize her CHF pH is on oral Lasix. She is improving , she can be discharged home with a LifeVest, diuretics, beta blockers, Sami inhibitors, and in terms of her respiratory status, we'll give the patient is Symbicort maintenance and a nebulizer to be is at home along with a prednisone burst taper. She should refrain from cigarette smoking. She was counseled in this regard.
[2022-01-06 14:45] LABS: Glucose,Whole Blood 213 mg/dL (75-99)
[2022-01-06] MEDS ORDERED: HEPARIN SODIUM,PORCINE 5,000 UNIT/ML 1 ML VIAL ONE (16:00)
[2022-01-06 16:17] LABS: Glucose,Whole Blood 286 mg/dL (75-99)
[2022-01-06 20:14] LABS: Glucose,Whole Blood 318 mg/dL (75-99)
[2022-01-06] MEDS: ASPIRIN 81 MG PO SCH (20:28)
[2022-01-06] MEDS: traZODone HCL 50 MG TAB PO SCH (20:32)
[2022-01-06] MEDS: ATORVASTATIN 20 MG TAB PO SCH (20:32)
[2022-01-07] MEDS: HEPARIN SODIUM,PORCINE/PF 5,000 UNIT/0.5 ML SYRINGE SQ SCH ×4 (00:08→23:54)
--- NOTE | 2022-01-07 02:14 | P.PN ---
Subjective Progress Note Date: 01/06/22 This is a pleasant 46-year-old female who was recently admitted with increasing shortness of breath and found to have cardiomyopathy with a EF of 20% with cardiology and pulmonary following. Patient is continued on breathing treatments and also maximizing medical management per cardiology. Case manage ment following and verifying coverage as cardiology is discussing possible LifeVest on discharge. Patient denies worsening shortness of breath and is currently room air and denies chest pain at this time. Patient is afebrile. Review of systems: Constitutional: No reports of fatigue, fever, or chills Cardiovascular: No reports of chest pain or palpitations Respiratory: No reports of worsening shortness of breath or cough, breathing easier GI: reports of nausea, no reports of of vomiting : No reports of dysuria or retention Neurovascular: no reports of generalized weakness All medications have been reviewed Active Medications Acetaminophen (Acetaminophen Tab 325 Mg Tab) 650 mg PO Q6HR PRN PRN Reason: Mild Pain or Fever > 100.5 Last Admin: 01/02/22 20:01 Dose: 650 mg Albuterol/Ipratropium (Ipratropium-Albuterol 3 Ml Neb) 3 ml INHALATION RT-TID [facility] Last Admin: 01/06/22 08:20 Dose: 3 ml Albuterol/Ipratropium (Ipratropium-Albuterol 3 Ml Neb) 3 ml INHALATION RT-Q4H PRN PRN Reason: Wheezing Last Admin: 01/03/22 11:28 Dose: 3 ml Aspirin (Aspirin 81 Mg) 81 mg PO [facility] Last Admin: 01/05/22 21:36 Dose: 81 mg Atorvastatin Calcium (Atorvastatin 20 Mg Tab) 20 mg PO [facility] Last Admin: 01/05/22 21:37 Dose: 20 mg Benzonatate (Benzonatate 100 Mg Cap) 200 mg PO Q8H PRN PRN Reason: Cough Last Admin: 01/06/22 06:59 Dose: 200 mg Carvedilol (Carvedilol 3.125 Mg Tab) 3.125 mg PO BID-W/MEALS [facility] Last Admin: 01/06/22 06:57 Dose: 3.125 mg Furosemide (Furosemide 40 Mg Tab) 40 mg PO DAILY [facility] Last Admin: 01/06/22 09:12 Dose: 40 mg Heparin Sodium (Porcine) (Heparin Sodium,Porcine/Pf 5,000 Unit/0.5 Ml Syringe) 5,000 unit SQ Q8HR [facility] Last Admin: 01/06/22 09:05 Dose: Not Given Insulin Aspart (Insulin Aspart (Novolog) 100 Unit/Ml Vial) 0 unit SQ ACHS [facility]; Protocol Last Admin: 01/06/22 06:57 Dose: 1 unit Insulin Aspart (Insulin Aspart (Novolog) 100 Unit/Ml Vial) 5 unit SQ AC-TID [facility] Last Admin: 01/06/22 09:13 Dose: 5 unit Lisinopril (Lisinopril 2.5 Mg Tab) 2.5 mg PO DAILY [facility] Last Admin: 01/06/22 09:12 Dose: 2.5 mg Naloxone HCl (Naloxone 0.4 Mg/Ml 1 Ml Vial) 0.2 mg IV Q2M PRN PRN Reason: Opioid Reversal Nicotine (Nicotine 21mg/24hr Patch) 1 patch TRANSDERM DAILY [facility] Last Admin: 01/06/22 09:12 Dose: 1 patch Ondansetron HCl (Ondansetron 4 Mg/2 Ml Vial) 4 mg IVP Q8HR PRN PRN Reason: Nausea And Vomiting Prednisone (Prednisone 20 Mg Tab) 40 mg PO DAILY [facility] Last Admin: 01/06/22 09:12 Dose: 40 mg Spironolactone (Spironolactone 25 Mg Tab) 12.5 mg PO DAILY [facility] Last Admin: 01/06/22 09:11 Dose: 12.5 mg Trazodone HCl (Trazodone Hcl 50 Mg Tab) 50 mg PO HS [facility] Last Admin: 01/05/22 21:37 Dose: 50 mg PHYSICAL EXAMINATION: GENERAL: The patient is alert and oriented x4, Well developed, well nourished. Obese. HEENT: Pupils are round and equally reacting to light. EOMI. no scleral icterus. No conjunctival pallor. Normocephalic, atraumatic. No pharyngeal erythema. No thyromegaly. CARDIOVASCULAR: S1 and S2 muffled PULMONARY: diminished breath sounds bilaterally with no wheezing or rhonchi noted. ABDOMEN: soft. Nontender on exam. obese. non-distended, normoactive bowel sounds. No palpable organomegaly. MUSCULOSKELETAL: No joint swelling or deformity. EXTREMITIES: No cyanosis, clubbing, or pedal edema. NEUROLOGICAL: Gross neurological examination did not reveal any focal deficits. SKIN: No rashes. Assessment: congestive heart failure, acute exacerbation with acute systolic dysfunction with possible cardiomyopathy of undetermined origin, ef is 25% with global hypokinesia Acute hypoxic respiratory failure secondary to underlying COPD Hyperlipidemia sinus tachycardia Continued ongoing nicotine abuse Diabetes mellitus, type 2, uncontrolled with hyperglycemia GI prophylaxis DVT prophylaxis Full code Plan: Recommend to continue with current medications and management cardio and pulmonary following closely. Case management also following and verifying insurance coverage as patient is possibly to go home with LifeVest prior to discharge per cardiology. Encouraged activity as tolerated and oral intake and recommend to continue with breathing inhalational treatments and patient is also maintained on maximum medical management per cardiology. Encouraged continued smoking cessation and lifestyle modification changes. Will follow-up with case management on life vest and continue to monitor closely. Due to multiple complex medical issues, prognosis is guarded. Possible discharge in 24 hours. The impression and plan of care has been dictated by Krista Vaca, nurse practitioner as directed. MD Jeremy I have performed a history and examination and MDM of this patient, discussed the same with the dictator, and agree with the dictator's assessment and plan as written ,documented as a scribe. Based on total visit time, I have performed more than 50% of the visit. Any additional findings or plans will be noted. Objective - Vital Signs Vital signs: Vital Signs Temp 98.2 F 01/06/22 08:57 Pulse 98 01/06/22 13:14 Resp 16 01/06/22 09:01 BP 97/74 01/06/22 08:57 Pulse Ox 97 01/06/22 08:57 FiO2 Intake & Output 01/05/22 01/06/22 01/06/22 18:59 06:59 18:59 Intake Total 240 800 560 Output Total 1350 Balance 240 -550 560 Weight 81.2 kg Intake: Oral 240 800 560 Output: Urine 1350 Other: Voiding Method Toilet Toilet - Labs CBC & Chem 7: 01/05/22 07:17 01/05/22 07:17 Labs: Abnormal Lab Results - Last 24 Hours (Table) 01/05/22 01/05/22 01/05/22 Range/Units 16:58 20:36 20:36 POC Glucose (mg/dL) 327 H 358 H 358 H (75-99) mg/dL 05/26/22 05/26/22 05/26/22 Range/Units 05:57 09:16 09:16 POC Glucose (mg/dL) 142 H 289 H 289 H (75-99) mg/dL
[2022-01-07 05:58] LABS: Glucose,Whole Blood 170 mg/dL (75-99)
[2022-01-07] MEDS: BENZONATATE 100 MG CAP PO PRN ×2 (05:59→20:57)
[2022-01-07] MEDS: INSULIN ASPART (NovoLOG) 100 UNIT/ML VIAL SQ SCH ×7 (05:59→20:56)
[2022-01-07] MEDS: carvediloL 3.125 MG TAB PO SCH ×2 (05:59→17:21)
[2022-01-07] MEDS: IPRATROPIUM-ALBUTEROL 3 ML NEB INHALATION SCH ×3 (08:41→20:01)
[2022-01-07] MEDS: FUROSEMIDE 40 MG TAB PO SCH (09:39)
[2022-01-07] MEDS: predniSONE 20 MG TAB PO SCH (09:39)
[2022-01-07] MEDS: NICOTINE 21MG/24HR PATCH TRANSDERM SCH (09:39)
[2022-01-07] MEDS: SPIRONOLACTONE 25 MG TAB PO SCH (09:39)
--- NOTE | 2022-01-07 10:13 | P.PN ---
Subjective Progress Note Date: 01/07/22 HISTORY OF PRESENT ILLNESS: This is a 46-year-old female with a past medical history significant for diabetes and hyperlipidemia. Patient is a pack a day smoker. She reports alcohol use twice a week. Patient does not follow with a operational communication chief. We have been asked to see the patient in consultation for congestive heart failure. Patient examined at the bedside. Patient states she thought she was getting bronchitis because she was coughing a lot and was short of breath. She states that she went to the urgent care and was given antibiotics for possible pneumonia. She states at home she was bringing up clear/white sputum. She denied any fever or chills. She reported some lower extremity swelling which has improved since coming to the hospital. She states her shortness of breath persisted so she decided to come to the emergency room. She denies any chest pain or pressure. Denies dizziness or lightheadedness. * EKG reveals sinus tachycardia with no signs of acute ischemia * Chest xray mild cardiomegaly without acute pulmonary process * Chest CT: No evidence for PE, cardiomegaly, trace ascites * Laboratory data: WBC 7.4. Hemoglobin 13.6. Platelet count 318. D-dimer 0.75. Sodium 136. Potassium 4.8. BUN 10. Creatinine 0.63. Troponin negative 1. ProBNP 3380. * Current home cardiac medications include Lipitor 20 mg at night and aspirin 81 mg at night 01/04/2022 Patient examined this morning at the bedside. Patient denies chest pain or pressure. She reports that her chest feels sore however this morning. She reports improvement in her shortness of breath. She remains on IV Lasix. Echocardiogram completed revealing ejection fraction 20-25% with moderate mitral regurgitation. 01/06/2022 Patient examined this morning to bedside. Patient denies chest pain or pressure. She denies shortness of breath. Vital signs are stable. 01/07/2022 Patient examined this morning at the bedside. Patient denies chest pain or pressure. She denies shortness of breath. Vital signs are stable. PHYSICAL EXAM: VITAL SIGNS: Reviewed. GENERAL: Well-developed in no acute distress. HEENT: Head is normocephalic. Pupils are equal, round. Sclerae anicteric. Mucous membranes of the mouth are moist. Neck supple. No JVD or thyromegaly LUNGS: Respirations even and unlabored. Lungs diminished. HEART: Regular rate and rhythm. S1 and S2 heard. ABDOMEN: Soft. Nondistended. Nontender. EXTREMITIES: Normal range of motion. No clubbing or cyanosis. Peripheral pulses intact. Trace lower extremity edema NEUROLOGIC: Awake and alert. Oriented x 3. ASSESSMENT: Shortness of breath Possible COPD versus bronchitis with wheezing on exam New-onset heart failure with reduced EF cardiomyopathy Diabetes Hyperlipidemia Nicotine dependence PLAN: Continue current cardiac medications Patient is currently stable from a cardiac standpoint Patient will receive a LifeVest at the time of discharge secondary to severe cardiomyopathy to prevent sudden cardiac Further recommendations pending patient's course Nurse practitioner note has been reviewed by physician. Signing provider agrees with the documented findings, assessment, and plan of care. Objective - Vital Signs Vital signs: Vital Signs Temp 98.3 F 01/07/22 07:45 Pulse 84 01/07/22 08:54 Resp 18 01/07/22 07:45 BP 110/68 01/07/22 07:45 Pulse Ox 98 01/07/22 07:45 FiO2 Intake & Output 01/06/22 01/07/22 01/07/22 18:59 06:59 18:59 Intake Total 1410 620 250 Output Total 1550 500 400 Balance -140 120 -150 Weight 82.1 kg Intake: IV 10 20 10 Invasive Line 2 10 20 10 Oral 1400 600 240 Output: Urine 1550 500 400 Other: Voiding Method Toilet Toilet - Labs CBC & Chem 7: 01/05/22 07:17 01/05/22 07:17 Labs: Abnormal Lab Results - Last 24 Hours (Table) 01/06/22 01/06/22 01/06/22 Range/Units 11:26 16:15 20:12 POC Glucose (mg/dL) 213 H 286 H 318 H (75-99) mg/dL 01/07/22 Range/Units 05:53 POC Glucose (mg/dL) 170 H (75-99) mg/dL
[2022-01-07 11:42] LABS: Glucose,Whole Blood 296 mg/dL (75-99)
--- NOTE | 2022-01-07 12:16 | P.PN ---
Subjective Progress Note Date: 01/07/22 46-year-old male patient admitted to [facility] because of increased shortness of breath a few weeks duration. The patient went to an urgent care for symptoms of bronchitis and he was given antibiotics and steroids. He was also noticing some increased edema in lower extremities bilaterally. He denied having any orthopnea. He was coughing up some clear sputum. For that reason he came into the hospital and the chest x-ray at the time of admission showed cardiomegaly without any acute abnormalities. The patient's proBNP level was 3318. A CT angiogram was done and the patient was found to have no evidence of any pulmonary embolism. There was background cardiomegaly and trace ascites. The lungs were free of any consolidation or pleural effusion or pneumothorax. Some atelectatic changes were seen in the posterior aspect of the left upper lobe. Airways were essentially patent. The patient was negative for influenza A and B. The COVID 19 testing was also negative. His blood work showed a white cell count 7.4 with hemoglobin 13.6. D-dimer was at 0.75, electrodes were normal, renal function was normal, proBNP level was 3380. Currently, the patient is receiving treatment with IV Lasix 20 mg every 12 hours. He was also placed on DuoNeb neb last treatment [id number] and empiric antibiotic coverage for Zithromax. Is a chronic smoker is currently on a nicotine patch. He is known to have diabetes mellitus and hyperlipidemia. Echo of the heart has been ordered. He is currently on O2 and he is on 3 L with a pulse ox of 98%. No history of asthma. No history of emphysema. She is a chronic smoker and she's been smoking since the age of 20. 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 She has received COVID 19 vaccination 2. Covid 19 testing is been negative. 01/04/2022, the patient is feeling better and she is less short of breath. The patient was diagnosed having a combination of COPD exacerbation and the patient also was found to have systolic heart failure, acute and the patient was optimized with a combination of bronchodilators, steroids, diuretics and she is already feeling better and she is currently on room air oxygen. She remains on DuoNeb neb last treatment [id number] and she was taken off the IV Solu Medrol started on a prednisone burst taper. She remains on Lasix 40 mg by mouth daily. She is on Zithromax as an empiric antibiotic coverage. Echocardiogram showed systolic heart failure and the patient has an ejection fraction of around 25% with severely impaired LV. The RV is mildly dilated. Otherwise the patient is to continue she is have any angina. She patient is going to undergo a cardiac stress test tomorrow with a possibility of even having a cardiac catheterization at a later stage. 2021, the patient completed the cardiac stress test and the results are not available yet. Meanwhile, earlier this morning, her chest became tight again and she started having some increased cough and wheezing. On examination, she remains bronchospastic. Noted the patient was taken off the IV Solu Medrol yesterday and she was started on a prednisone burst taper. She is also on oral Lasix and oral Zithromax as an empiric antibiotic coverage. Her left ventricle ejection fraction is less then 30% in order of 25%. The blood work was reviewed. The patient is a smoker and she's been smoking since the age of 20. She may have underlying COPD and she has only pro-air rescue inhaler at home. She does not have a home nebulizer for now. Her Covid 19 testing was negative at a time of admission. No angina. Improvement in the swelling in lower extremities. The patient is seen today 01/06/2022 in follow-up in the selective care unit. She is up ambulating in the room. Awake and alert in no acute distress. M aintaining good O2 saturations in the 90s on room air. No worsening shortness of breath, cough or congestion. No chest tightness or wheezing. No chest pain. Plan is for a LifeVest prior to her discharge. Blood sugar 142. She is continued on Lasix 40 mg daily. Heparin for DVT prophylaxis. NicoDerm patch in place. 01/07/2022, no complaints and the patient is awaiting her LifeVest to be disc harged home. No chest pain. Shortness of breath is improved. She is on a prednisone burst taper. She has a home nebulizer for now. She'll be also given Symbicort. Smoking cessation counseling was again emphasized. Her cardiac condition is stable. She is on room air oxygen. No other significant events overnight. No cardiac arrhythmias. The patient has no new labs from today. Objective - Vital Signs Vital signs: Vital Signs Temp 98.3 F 01/07/22 07:45 Pulse 87 01/07/22 11:40 Resp 18 01/07/22 07:45 BP 110/68 01/07/22 07:45 Pulse Ox 98 01/07/22 07:45 FiO2 Intake & Output 01/06/22 01/07/22 01/07/22 18:59 06:59 18:59 Intake Total 1410 620 250 Output Total 1550 500 400 Balance -140 120 -150 Weight 82.1 kg Intake: IV 10 20 10 Invasive Line 2 10 20 10 Oral 1400 600 240 Output: Urine 1550 500 400 Other: Voiding Method Toilet Toilet - Exam GENERAL EXAM: Alert, active, pleasant 46-year-old female, on room air, comfortable in no apparent distress. HEAD: Normocephalic. EYES: Normal reaction of pupils, equal size. NOSE: Clear with pink turbinates. THROAT: No erythema or exudates. NECK: No masses, no JVD. CHEST: No chest wall deformity. LUNGS: Equal air entry with faint end expiratory wheeze. CVS: S1 and S2 normal with no audible murmur, regular rhythm. ABDOMEN: No hepatosplenomegaly, normal bowel sounds, no guarding or rigidity. SPINE: No scoliosis or deformity SKIN: No rashes CENTRAL NERVOUS SYSTEM: No focal deficits, tone is normal in all 4 extremities. EXTREMITIES: There is no peripheral edema. No clubbing, no cyanosis. Peripheral pulses are intact. - Labs CBC & Chem 7: 01/05/22 07:17 01/05/22 07:17 Labs: Abnormal Lab Results - Last 24 Hours (Table) 01/06/22 01/06/22 01/06/22 Range/Units 11:26 16:15 20:12 POC Glucose (mg/dL) 213 H 286 H 318 H (75-99) mg/dL 01/07/22 01/07/22 Range/Units 05:53 11:29 POC Glucose (mg/dL) 170 H 296 H (75-99) mg/dL Assessment and Plan Plan: 1 acute hypoxic respiratory failure probably due to a component of chronic bronchitis with an acute exacerbation in addition to a component of CHF that needs to be further investigated. The patient is a chronic smoker. Currently she is bronchospastic and wheezy. Patient was also found to be in acute systolic heart failure with an ejection fraction of 20%, and oxidation is improving and the patient is less bronchospastic although her bronchospasm not completely subsided. The patient also underwent a cardiac stress test and this was a Lexiscan and was reported to be no evidence of any reversible ischemia. The patient will be discharged home with a LifeVest. 2 systolic heart failure with an ejection fraction of less than 20% needs further evaluation 3 COPD in exacerbation 4 chronic smoker 5 diabetes mellitus type 2 6 Hyperlipidemia cholesterol Plan Continue DuoNeb [id number] Julio home nebulizer has been arranged Continue Symbicort 2 puffs twice a day Prednisone burst taper Oral Lasix Echocardiogram was noted and the patient underwent a cardiac stress test, showed no evidence of any reversible ischemia Patient is currently on Coreg 3.125 mg twice a day, Lasix 40 mg by mouth daily and lisinopril 2.5 mg by mouth daily. She was also started on Aldactone 12.5 mg by mouth daily. This was started to optimize her CHF Nicotine patch Smoking cessation counseling Outpatient PFT with a concern of this patient having chronic bronchitis related to chronic smoking Resume diabetic meds We'll continue to follow on outpatient basis with a full PFT. LifeVest AICD is no improvement of the left ventricle ejection fraction.
--- NOTE | 2022-01-07 14:56 | P.EN ---
Patient resented with shortness of breath and found to have CHF new onset and had echo done which shows a left ventricular EF of 20-25% with left ventricular hypertrophy, right ventricle shows mild right ventricular dilation with mild pulmonary hypertension. Per cardiology patient has nonischemic cardiomyopathy and will require LifeVest on discharge
[2022-01-07 16:57] LABS: Glucose,Whole Blood 334 mg/dL (75-99)
--- NOTE | 2022-01-07 20:04 | P.DS ---
Providers Date of admission: 01/04/22 10:52 Expected date of discharge: 01/07/22 Attending physician: Nancy Romo Consults: 01/02/22 16:33 Consult Physician Urgent Consulting Provider: Ant Quiros Consult Reason/Comments: New onset CHF Do you want consulting provider notified?: Yes 01/03/22 08:32 Consult Physician Routine Consulting Provider: Silas Funes Consult Reason/Comments: SOB, COPD? Do you want consulting provider notified?: Yes Primary care physician: Ino Frias Hospital Course: Final Diagnosis congestive heart failure, acute exacerbation with acute systolic dysfunction with non-ischemic cardiomyopathy of undetermined origin, ef is 25% with global hypokinesia Acute hypoxic respiratory failure secondary to underlying COPD Hyperlipidemia sinus tachycardia Continued ongoing nicotine abuse Diabetes mellitus, type 2, uncontrolled with hyperglycemia GI prophylaxis DVT prophylaxis Full code Discharge disposition Patient is being discharged in a stable condition with guarded prognosis to home with a life vest from [employer]. Patient will follow-up with Dr. Arteaga in the outpatient setting upon discharge. Patient does follow with DR. Mckinnon although working on new PCP. Patient is to continue with current medications as mentioned below and close outpatient follow-up with cardiology and pulmonary. Maximizing medical management per cardiology. Total time taken is greater than 35 minutes. Hospital course This is a 46-year-old female who was recently admitted with shortness of breath and found to have new onset CHF with cardiomyopathy and an ef of 20-25%. Patient is currently being fitted for life vest and will follow up with cardiology and pulmonary on discharge. Blood sugars elevated as well and recommend strict consistent carb, heart healthy diet with close monitoring and tight glycemic control. Encouraged smoking cessation and lifestyle modifications. Currently no reports of chest pain, shortness of breath, or palpitations. Patient is afebrile. No reports of nausea or vomiting and patient is tolerating diet. Patient will be discharged home today. Guarded prognosis. Physical exam: Gen: This is a 46-year-old female awake, alert and oriented 3, well-developed, well-nourished HEENT: Head is atraumatic, normocephalic. Pupils equal, round. Sclerae is anicteric. NECK: Supple. No JVD. No lymphadenopathy. No thyromegaly. LUNGS: diminished breath sounds bilaterally with expiratory wheezes noted. No intercostal retractions. HEART: Regular rate and rhythm. No murmur. ABDOMEN: Soft. Bowel sounds are present. No masses. No tenderness. EXTREMITIES: No pedal edema. No calf tenderness. NEUROLOGICAL: Patient is awake, alert and oriented x3. Cranial nerves 2 through 12 are grossly intact. Please refer to medication reconciliation sheet for a list of medications. The impression and plan of care has been dictated by Krista Vaca, Nurse Practitioner as directed. Dr. Anila MD I have performed a history and examination and MDM of this patient, discussed the same with the dictator, and agree with the dictator's assessment and plan as written ,documented as a scribe. Based on total visit time, I have performed more than 50% of the visit. Patient Condition at Discharge: Stable Plan - Discharge Summary Discharge Rx Participant: Yes New Discharge Prescriptions: New Ipratropium-Albuterol Nebulize [Duoneb 0.5 mg-3 mg/3 ml Soln] 3 ml INHALATION QID 30 Days #6 pack predniSONE 0 mg PO DIRECTED 16 Days #40 tab Budesonide/Formoterol Fumarate [Symbicort 160-4.5 Mcg Inhaler] 2 puff INHALATION BID 30 Days #1 each Azithromycin [Zithromax Tri-Arnaud (3 tabs)] 500 mg PO DAILY 3 Days #3 tab carvediloL [Coreg] 3.125 mg PO BID-W/MEALS 30 Days #60 tab Ipratropium-Albuterol Nebulize [Duoneb 0.5 mg-3 mg/3 ml Soln] 3 ml INHALATION RT-TID each Furosemide [Lasix] 40 mg PO DAILY 30 Days #30 tab Spironolactone [Aldactone] 12.5 mg PO DAILY 30 Days #15 tab Ipratropium-Albuterol Nebulize [Duoneb 0.5 mg-3 mg/3 ml Soln] 3 ml INHALATION RT-Q4H PRN each PRN Reason: Wheezing Nicotine 21Mg/24Hr Patch [Habitrol] 1 patch TRANSDERM DAILY 30 Days #30 patch Acetaminophen Tab [Tylenol] 650 mg PO Q6HR PRN tab PRN Reason: Mild Pain Or Fever > 100.5 lisinopriL [Zestril] 2.5 mg PO DAILY 30 Days #30 tab Continue Aspirin EC [Ecotrin Low Dose] 81 mg PO HS Benzonatate [Benzonatate Perle] 200 mg PO Q8H PRN PRN Reason: Cough Albuterol Sulfate [Proair Hfa] 2 puff INHALATION RT-Q6H PRN PRN Reason: Shortness Of Breath Atorvastatin [Lipitor] 20 mg PO HS Changed metFORMIN HCL [Glucophage] 1,000 mg PO BID 30 Days #120 tab Discontinued Doxycycline Hyclate 100 mg PO BID Discharge Medication List Albuterol Sulfate [Proair Hfa] 2 puff INHALATION RT-Q6H PRN 01/02/22 [History] Aspirin EC [Ecotrin Low Dose] 81 mg PO HS 01/02/22 [History] Atorvastatin [Lipitor] 20 mg PO HS 01/02/22 [History] Benzonatate [Benzonatate Perle] 200 mg PO Q8H PRN 01/02/22 [History] Azithromycin [Zithromax Tri-Arnaud (3 tabs)] 500 mg PO DAILY 3 Days #3 tab 01/05/22 [Rx] Budesonide/Formoterol Fumarate [Symbicort 160-4.5 Mcg Inhaler] 2 puff INHALATION BID 30 Days #1 each 01/05/22 [Rx] Ipratropium-Albuterol Nebulize [Duoneb 0.5 mg-3 mg/3 ml Soln] 3 ml INHALATION QID 30 Days #6 pack 01/05/22 [Rx] predniSONE 0 mg PO DIRECTED 16 Days #40 tab 01/05/22 [Rx] Acetaminophen Tab [Tylenol] 650 mg PO Q6HR PRN tab 01/07/22 [Rx] Furosemide [Lasix] 40 mg PO DAILY 30 Days #30 tab 01/07/22 [Rx] Ipratropium-Albuterol Nebulize [Duoneb 0.5 mg-3 mg/3 ml Soln] 3 ml INHALATION RT-Q4H PRN each 01/07/22 [Rx] Ipratropium-Albuterol Nebulize [Duoneb 0.5 mg-3 mg/3 ml Soln] 3 ml INHALATION RT-TID each 01/07/22 [Rx] Nicotine 21Mg/24Hr Patch [Habitrol] 1 patch TRANSDERM DAILY 30 Days #30 patch 01/07/22 [Rx] Spironolactone [Aldactone] 12.5 mg PO DAILY 30 Days #15 tab 01/07/22 [Rx] carvediloL [Coreg] 3.125 mg PO BID-W/MEALS 30 Days #60 tab 01/07/22 [Rx] lisinopriL [Zestril] 2.5 mg PO DAILY 30 Days #30 tab 01/07/22 [Rx] metFORMIN HCL [Glucophage] 1,000 mg PO BID 30 Days #120 tab 01/07/22 [Rx] Follow up Appointment(s)/Referral(s): Rogerio De La Fuente MD [REFERRING] - 1 Week (Patient will be a new patient with this office at discharge.) José Miguel Lopez MD [STAFF PHYSICIAN] - 1 Week Dallas Ayala MD [STAFF PHYSICIAN] - 1 Week Patient Instructions/Handouts: Spironolactone (By mouth), Lisinopril (By mouth), Furosemide (By mouth), Nicotine (Absorbed through the skin), Carvedilol (By mouth), Heart Failure (ER), How to Stop Smoking (ED), Low-Sodium Diet (ED), Living With Your Heart Failure Monitoring System (DC) Activity/Diet/Wound Care/Special Instructions: please provide a work note on discharge activity limited until follow up follow up with cardiology on discharge follow up with primary care provider on discharge follow up pulmonary in 1-2 weeks continue taking medications as prescribed To receive Lifevest prior to discharge follow heart healthy diet and consistent carb diet for better diabetic control avoid any tobacco use continue monitoring blood sugars before meals and at bedtime and keep a diary and may need to start insulin Discharge Disposition: HOME SELF-CARE
[2022-01-07 20:20] LABS: Glucose,Whole Blood 340 mg/dL (75-99)
[2022-01-07] MEDS: ATORVASTATIN 20 MG TAB PO SCH (20:56)
[2022-01-07] MEDS: ASPIRIN 81 MG PO SCH (20:56)
[2022-01-07] MEDS: traZODone HCL 50 MG TAB PO SCH (20:57)
[2022-01-08 06:31] LABS: Glucose,Whole Blood 173 mg/dL (75-99)
[2022-01-08] MEDS: BENZONATATE 100 MG CAP PO PRN (06:52)
[2022-01-08] MEDS: carvediloL 3.125 MG TAB PO SCH (06:52)
[2022-01-08] MEDS: INSULIN ASPART (NovoLOG) 100 UNIT/ML VIAL SQ SCH ×4 (06:53→12:51)
[2022-01-08] MEDS: IPRATROPIUM-ALBUTEROL 3 ML NEB INHALATION SCH ×2 (08:02→11:25)
[2022-01-08 08:37] VITALS: RESP 16
[2022-01-08] MEDS: FUROSEMIDE 40 MG TAB PO SCH (08:37)
[2022-01-08] MEDS: SPIRONOLACTONE 25 MG TAB PO SCH (08:37)
[2022-01-08] MEDS: predniSONE 20 MG TAB PO SCH (08:37)
[2022-01-08] MEDS: NICOTINE 21MG/24HR PATCH TRANSDERM SCH (08:38)
[2022-01-08] MEDS: HEPARIN SODIUM,PORCINE/PF 5,000 UNIT/0.5 ML SYRINGE SQ SCH (08:38)
--- NOTE | 2022-01-08 10:49 | P.PN ---
Subjective HISTORY OF PRESENT ILLNESS: This is a 46-year-old female with a past medical history significant for diabetes and hyperlipidemia. Patient is a pack a day smoker. She reports alcohol use twice a week. 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 We have been asked to see the patient in consultation for congestive heart failure. Patient examined at the bedside. Patient states she thought she was getting bronchitis because she was coughing a lot and was short of breath. She states that she went to the urgent care and was given antibiotics for possible pneumonia. She states at home she was bringing up clear/white sputum. She denied any fever or chills. She reported some lower extremity swelling which has improved since coming to the hospital. She states her shortness of breath persisted so she decided to come to the emergency room. She denies any chest pain or pressure. Denies dizziness or lightheadedness. * EKG reveals sinus tachycardia with no signs of acute ischemia * Chest xray mild cardiomegaly without acute pulmonary process * Chest CT: No evidence for PE, cardiomegaly, trace ascites * Laboratory data: WBC 7.4. Hemoglobin 13.6. Platelet count 318. D-dimer 0.75. Sodium 136. Potassium 4.8. BUN 10. Creatinine 0.63. Troponin negative 1. ProBNP 3380. * Current home cardiac medications include Lipitor 20 mg at night and aspirin 81 mg at night 01/04/2022 Patient examined this morning at the bedside. Patient denies chest pain or pressure. She reports that her chest feels sore however this morning. She reports improvement in her shortness of breath. She remains on IV Lasix. Echocardiogram completed revealing ejection fraction 20-25% with moderate mitral regurgitation. 01/06/2022 Patient examined this morning to bedside. Patient denies chest pain or pressure. She denies shortness of breath. Vital signs are stable. 01/07/2022 Patient examined this morning at the bedside. Patient denies chest pain or pressure. She denies shortness of breath. Vital signs are stable. 01/08 Patient seen and examined. Denies any chest pain or pressure. Admits to continued shortness breath however diffuse wheezing and much better than previous. Denies any lower extremity edema. PHYSICAL EXAM: VITAL SIGNS: Reviewed. GENERAL: Well-developed in no acute distress. HEENT: Head is normocephalic. Pupils are equal, round. Sclerae anicteric. Mucous membranes of the mouth are moist. Neck supple. No JVD or thyromegaly LUNGS: Diffuse wheeze HEART: Regular rate and rhythm. S1 and S2 heard. ABDOMEN: Soft. Nondistended. Nontender. EXTREMITIES: Normal range of motion. No clubbing or cyanosis. Peripheral pulses intact. Trace lower extremity edema NEUROLOGIC: Awake and alert. Oriented x 3. ASSESSMENT: Shortness of breath Possible COPD versus bronchitis with wheezing on exam New-onset heart failure with reduced EF Acute on chronic systolic heart failure, improved cardiomyopathy Diabetes Hyperlipidemia Nicotine dependence PLAN: Patient will receive a LifeVest at the time of discharge secondary to severe cardiomyopathy to prevent sudden cardiac Patient with mild elevated heart rates in the 90s to 100s, sinus. Appears to be tolerating the carvedilol and we will increase to 6.25 twice a day. She still has diffuse wheezing however appears stable from a heart failure standpoint. Stable for discharge home. Objective - Vital Signs Vital signs: Vital Signs Temp 97.7 F 01/08/22 08:37 Pulse 100 01/08/22 08:37 Resp 16 01/08/22 08:37 BP 110/75 01/08/22 08:37 Pulse Ox 96 01/08/22 08:37 FiO2 21 01/07/22 20:02 Intake & Output 01/07/22 01/08/22 01/08/22 18:59 06:59 18:59 Intake Total 1100 257 260 Output Total 2049 Balance -950 257 260 Weight 82.1 kg 82.3 kg Intake: IV 20 20 Invasive Line 2 20 20 Oral 1080 237 260 Output: Urine 2049 Other: Voiding Method Toilet - Labs CBC & Chem 7: 01/05/22 07:17 01/05/22 07:17 Labs: Abnormal Lab Results - Last 24 Hours (Table) 01/07/22 01/07/22 01/07/22 Range/Units 11:29 16:56 20:18 POC Glucose (mg/dL) 296 H 334 H 340 H (75-99) mg/dL 01/08/22 Range/Units 06:27 POC Glucose (mg/dL) 173 H (75-99) mg/dL
[2022-01-08 11:57] LABS: Glucose,Whole Blood 354 mg/dL (75-99)
--- NOTE | 2022-01-08 15:16 | P.DS ---
Providers Date of admission: 01/04/22 10:52 Expected date of discharge: 01/08/22 Attending physician: Nancy Romo Consults: 01/02/22 16:33 Consult Physician Urgent Consulting Provider: Ant Quiros Consult Reason/Comments: New onset CHF Do you want consulting provider notified?: Yes 01/03/22 08:32 Consult Physician Routine Consulting Provider: Silas Funes Consult Reason/Comments: SOB, COPD? Do you want consulting provider notified?: Yes Primary care physician: Ino Frias Hospital Course: Final Diagnosis congestive heart failure, acute exacerbation with acute systolic dysfunction with non-ischemic cardiomyopathy of undetermined origin, ef is 25% with global hypokinesia receiving life vest ([employer]) on discharge Acute hypoxic respiratory failure secondary to underlying COPD Hyperlipidemia sinus tachycardia Continued ongoing nicotine abuse Diabetes mellitus, type 2, uncontrolled with hyperglycemia GI prophylaxis DVT prophylaxis Full code Discharge disposition Patient is being discharged in a stable condition with guarded prognosis to home with a life vest from [employer]. Patient will follow-up with Dr. Arteaga in the outpatient setting upon discharge. Patient does follow with DR. Mckinnon although working on new PCP. Patient is to continue with current medications as mentioned below and close outpatient follow-up with cardiology and pulmonary. Maximizing medical management per cardiology. Total time taken is greater than 35 minutes. Hospital course This is a 46-year-old female who was recently admitted with shortness of breath and found to have new onset CHF with cardiomyopathy and an ef of 20-25%. Patient is currently being fitted for life vest and will follow up with cardiology and pulmonary on discharge. Blood sugars elevated as well and recommend strict consistent carb, heart healthy diet with close monitoring and tight glycemic control. Discussed with patient about discussing with pcp about blood sugars and keeping a diary of readings and possible insulin use. Encouraged smoking cessation and lifestyle modifications. Currently no reports of chest pain, shortness of breath, or palpitations. Patient is afebrile. No reports of n ausea or vomiting and patient is tolerating diet. Patient will be discharged home today. Guarded prognosis. Physical exam: Gen: This is a 46-year-old female awake, alert and oriented 3, well-developed, well-nourished. heart rate 100, bp 110/75 and 96 % on room air HEENT: Head is atraumatic, normocephalic. Pupils equal, round. Sclerae is anicteric. NECK: Supple. No JVD. No lymphadenopathy. No thyromegaly. LUNGS: diminished breath sounds bilaterally with expiratory wheezes noted. No intercostal retractions. HEART: Regular rate and rhythm. No murmur. ABDOMEN: Soft. Bowel sounds are present. No masses. No tenderness. EXTREMITIES: No pedal edema. No calf tenderness. NEUROLOGICAL: Patient is awake, alert and oriented x3. Cranial nerves 2 through 12 are grossly intact. Please refer to medication reconciliation sheet for a list of medications. The impression and plan of care has been dictated by Krista Vaca, Nurse Practitioner as directed. Dr. Anila MD I have performed a history and examination and MDM of this patient, discussed the same with the dictator, and agree with the dictator's assessment and plan as written ,documented as a scribe. Based on total visit time, I have performed more than 50% of the visit. Patient Condition at Discharge: Stable Plan - Discharge Summary Discharge Rx Participant: Yes New Discharge Prescriptions: New Ipratropium-Albuterol Nebulize [Duoneb 0.5 mg-3 mg/3 ml Soln] 3 ml INHALATION QID 30 Days #6 pack predniSONE 0 mg PO DIRECTED 16 Days #40 tab Ipratropium-Albuterol Nebulize [Duoneb 0.5 mg-3 mg/3 ml Soln] 3 ml INHALATION RT-TID each Furosemide [Lasix] 40 mg PO DAILY 30 Days #30 tab Budesonide-Formot 160-4.5 Mcg [Symbicort 160-4.5 Mcg Inhaler] 2 puff INHALATION BID 30 Days #10.2 gm Spironolactone [Aldactone] 12.5 mg PO DAILY 30 Days #15 tab Ipratropium-Albuterol Nebulize [Duoneb 0.5 mg-3 mg/3 ml Soln] 3 ml INHALATION RT-Q4H PRN each PRN Reason: Wheezing Nicotine 21Mg/24Hr Patch [Habitrol] 1 patch TRANSDERM DAILY 30 Days #30 patch Acetaminophen Tab [Tylenol] 650 mg PO Q6HR PRN tab PRN Reason: Mild Pain Or Fever > 100.5 lisinopriL [Zestril] 2.5 mg PO DAILY 30 Days #30 tab carvediloL [Coreg] 6.25 mg PO BID-W/MEALS 30 Days #60 tab Azithromycin [Zithromax] 500 mg PO DAILY 3 Days #3 tab Continue Aspirin EC [Ecotrin Low Dose] 81 mg PO HS Benzonatate [Benzonatate Perle] 200 mg PO Q8H PRN PRN Reason: Cough Albuterol Sulfate [Proair Hfa] 2 puff INHALATION RT-Q6H PRN PRN Reason: Shortness Of Breath Atorvastatin [Lipitor] 20 mg PO HS Changed metFORMIN HCL [Glucophage] 1,000 mg PO BID 30 Days #120 tab Discontinued Doxycycline Hyclate 100 mg PO BID Discharge Medication List Albuterol Sulfate [Proair Hfa] 2 puff INHALATION RT-Q6H PRN 01/02/22 [History] Aspirin EC [Ecotrin Low Dose] 81 mg PO HS 01/02/22 [History] Atorvastatin [Lipitor] 20 mg PO HS 01/02/22 [History] Benzonatate [Benzonatate Perle] 200 mg PO Q8H PRN 01/02/22 [History] Ipratropium-Albuterol Nebulize [Duoneb 0.5 mg-3 mg/3 ml Soln] 3 ml INHALATION QID 30 Days #6 pack 01/05/22 [Rx] predniSONE 0 mg PO DIRECTED 16 Days #40 tab 01/05/22 [Rx] Acetaminophen Tab [Tylenol] 650 mg PO Q6HR PRN tab 01/07/22 [Rx] Furosemide [Lasix] 40 mg PO DAILY 30 Days #30 tab 01/07/22 [Rx] Ipratropium-Albuterol Nebulize [Duoneb 0.5 mg-3 mg/3 ml Soln] 3 ml INHALATION RT-Q4H PRN each 01/07/22 [Rx] Ipratropium-Albuterol Nebulize [Duoneb 0.5 mg-3 mg/3 ml Soln] 3 ml INHALATION RT-TID each 01/07/22 [Rx] Nicotine 21Mg/24Hr Patch [Habitrol] 1 patch TRANSDERM DAILY 30 Days #30 patch 01/07/22 [Rx] Spironolactone [Aldactone] 12.5 mg PO DAILY 30 Days #15 tab 01/07/22 [Rx] lisinopriL [Zestril] 2.5 mg PO DAILY 30 Days #30 tab 01/07/22 [Rx] metFORMIN HCL [Glucophage] 1,000 mg PO BID 30 Days #120 tab 01/07/22 [Rx] Azithromycin [Zithromax] 500 mg PO DAILY 3 Days #3 tab 01/08/22 [Rx] Budesonide-Formot 160-4.5 Mcg [Symbicort 160-4.5 Mcg Inhaler] 2 puff INHALATION BID 30 Days #10.2 gm 01/08/22 [Rx] carvediloL [Coreg] 6.25 mg PO BID-W/MEALS 30 Days #60 tab 01/08/22 [Rx] Follow up Appointment(s)/Referral(s): [facility],Equipment [NON-STAFF] - As Needed (*Please call [facility] if you have questions about your new nebulizer.) Rogerio De La Fuente MD [REFERRING] - 1 Week (Patient will be a new patient with this office at discharge.) Dallas Ayala MD [STAFF PHYSICIAN] - 1 Week José Miguel Lopez MD [STAFF PHYSICIAN] - 1 Week Patient Instructions/Handouts: Spironolactone (By mouth), Lisinopril (By mouth), Furosemide (By mouth), Nicotine (Absorbed through the skin), Carvedilol (By mouth), Heart Failure (ER), How to Stop Smoking (ED), Low-Sodium Diet (ED), Living With Your Heart Failure Monitoring System (DC) Activity/Diet/Wound Care/Special Instructions: please provide a work note on discharge activity limited until follow up follow up with cardiology on discharge follow up with primary care provider on discharge follow up pulmonary in 1-2 weeks continue taking medications as prescribed To receive Lifevest prior to discharge follow heart healthy diet and consistent carb diet for better diabetic control avoid any tobacco use continue monitoring blood sugars before meals and at bedtime and keep a diary and may need to start insulin Discharge Disposition: HOME SELF-CARE
[2022-01-08 16:52] VITALS: BP 112/74; PULSE 106; TEMP 97.6
[2022-01-08] MEDS ORDERED: carvediloL 6.25 MG TAB PO SCH (17:30)
== END 2022-01-08 16:40 | disposition home or self-care (01) | DRG 291 ==
LOC: EC 12:07 → 3SCARD 16:46 → OBSVTOIN 01-04 10:52
PROVIDERS: ADMIT Hospitalist; ATTEND Hospitalist
DX: I50.23 Acute on chronic systolic (congestive) heart failure (principal); J96.01 Acute respiratory failure with hypoxia; I42.8 Other cardiomyopathies; J44.1 Chronic obstructive pulmonary disease with (acute) exacerbation; F51.04 Psychophysiologic insomnia; I27.20 Pulmonary hypertension, unspecified; E11.65 Type 2 diabetes mellitus with hyperglycemia; E78.5 Hyperlipidemia, unspecified; R00.0 Tachycardia, unspecified; F17.210 Nicotine dependence, cigarettes, uncomplicated; T38.0X5A Adverse effect of glucocorticoids and synthetic analogues, initial encounter; Z20.822 Contact with and (suspected) exposure to COVID-19; Z79.84 Long term (current) use of oral hypoglycemic drugs; Z79.899 Other long term (current) drug therapy; Z88.5 Allergy status to narcotic agent; Z88.0 Allergy status to penicillin; Z79.82 Long term (current) use of aspirin; Z90.49 Acquired absence of other specified parts of digestive tract; Z98.890 Other specified postprocedural states
CPT/HCPCS: 36415; 71046; 71275; 78452; 80048; 80053; 83036; 83735; 83880; 84484; 85025; 85027; 85379; 85652; 86140; 87502; 87635; 93005; 93017; 93306; 94640; 94760; 96374; 96375; 99285

== ENCOUNTER → 2022-06-07 | Outpatient (CLI) | payer OTHER ==
[2022-06-07 15:06] LABS: ALT 16 U/L (8-44); AST 19 U/L (13-35); African American GFR (CKD) 126.1 (60.0-200.0); Albumin 4.4 g/dL (3.8-4.9); Albumin/Globulin Ratio 1.82 (1.60-3.17); Alkaline Phosphatase 43 U/L (41-126); BUN/Creat Ratio 18.26 Ratio (12.00-20.00); Blood Urea Nitrogen 11.1 mg/dL (9.0-27.0); Calcium 9.3 mg/dL (8.7-10.3); Chloride 105 mmol/L (96-109); Chol/HDL Ratio 3.05 Ratio; Globulin 2.4 g/dL (1.6-3.3); Glucose 133 mg/dL (70-110); Non-African American GFR(CKD) 108.8 (60.0-200.0); Potassium 4.7 mmol/L (3.5-5.5); Sodium 135 mmol/L (135-145); Total Protein 6.7 g/dL (6.2-8.2); VLDL Calculation 12.58 mg/dL (5.00-40.00)
== END | disposition home or self-care (01) ==
LOC: LABWHC1 09:04
PROVIDERS: ATTEND Internal Medicine Interventional Cardiology
DX: E78.2 Mixed hyperlipidemia (principal)
CPT/HCPCS: 36415; 80053; 80061

== ENCOUNTER → 2022-08-19 | Outpatient (CLI) | payer OTHER ==
[2022-08-19 17:54] LABS: ALT 29 U/L (8-44); AST 27 U/L (13-35); African American GFR (CKD) 127.2 (60.0-200.0); Albumin 4.6 g/dL (3.8-4.9); Albumin/Globulin Ratio 2.36 (1.60-3.17); Alkaline Phosphatase 50 U/L (41-126); BUN/Creat Ratio 12.77 Ratio (12.00-20.00); Blood Urea Nitrogen 7.6 mg/dL (9.0-27.0); Calcium 9.5 mg/dL (8.7-10.3); Carbon Dioxide 21.8 mmol/L (20.0-27.5); Chloride 103 mmol/L (96-109); Globulin 1.9 g/dL (1.6-3.3); Glucose 125 mg/dL (70-110); LDL Cholesterol,Calculated 86.2 mg/dL (0.0-131.0); Non-African American GFR(CKD) 109.7 (60.0-200.0); Potassium 4.9 mmol/L (3.5-5.5); Sodium 137 mmol/L (135-145); Total Protein 6.5 g/dL (6.2-8.2); VLDL Calculation 14.78 mg/dL (5.00-40.00)
== END | disposition home or self-care (01) ==
LOC: LABWHC1 09:55
PROVIDERS: ATTEND Nurse Practitioner Adult Health
DX: E11.9 Type 2 diabetes mellitus without complications (principal); E78.2 Mixed hyperlipidemia
CPT/HCPCS: 36415; 80053; 80061

== ENCOUNTER → 2022-12-21 | Outpatient (CLI) | payer OTHER ==
[2022-12-21 16:00] LABS: Appearance,Urine Clear (Clear); Bilirubin,Urine Negative (Negative); Blood,Urine Negative (Negative); Color,Urine Yellow (Yellow); Ketones,Urine 15 mg/dL (Negative); Nitrite,Urine Negative (Negative); PH, Urine 5.5 (5.0-8.0); Specific Gravity,Urine 1.018 (1.001-1.030); Urobilinogen,Urine 0.2 (0.2,1.0)
[2022-12-21 18:25] LABS: LDL Cholesterol,Calculated 90.3 mg/dL (0.0-131.0); VLDL Calculation 19.18 mg/dL (5.00-40.00)
[2022-12-21 18:37] LABS: ALT 29 U/L (8-44); AST 62 U/L (13-35); African American GFR (CKD) 120.4 (60.0-200.0); Albumin 4.5 g/dL (3.8-4.9); Alkaline Phosphatase 45 U/L (41-126); BUN/Creat Ratio 11.71 Ratio (12.00-20.00); Blood Urea Nitrogen 8.2 mg/dL (9.0-27.0); Calcium 9.6 mg/dL (8.7-10.3); Carbon Dioxide 22.3 mmol/L (20.0-27.5); Chloride 102 mmol/L (96-109); Globulin 2.5 g/dL (1.6-3.3); Glucose 135 mg/dL (70-110); Non-African American GFR(CKD) 103.9 (60.0-200.0); Potassium 5.6 mmol/L (3.5-5.5); Sodium 137 mmol/L (135-145)
--- NOTE | 2022-12-22 08:44 | MM ---
Reason for Exam: Screening (asymptomatic). Last mammogram was performed 3 year(s) and 7 month(s) ago. Patient History: Menarche at age 16. Patient has no children. Premenopausal. Risk Values: Viki 5 year model risk: 0.9%. NCI Lifetime model risk: 9.6%. Prior Study Comparison: 06/10/2019 Bilateral Diagnostic Mammogram, [facility]. Tissue Density: There are scattered fibroglandular densities. Findings: Analyzed By CAD. Benign-appearing bilateral axillary lymph nodes are redemonstrated. There is no suspicious group of microcalcifications or new suspicious mass in either breast. Overall Assessment: Negative, BI-RAD 1 Management: Screening Mammogram of both breasts in 1 year. . Patient should continue monthly self-breast exams. A clinical breast exam by your physician is recommended on an annual basis. This exam should not preclude additional follow-up of suspicious palpable abnormalities. Note on Viki scores and lifetime risk: 1. A Viki score greater than 3% is considered moderate risk. If this is the case, consider specialist referral to assess eligibility for a risk reducing agent. 2. If overall lifetime risk for the development of breast cancer is 20% or higher, the patient may qualify for future screening with alternating mammogram and breast MRI. Electronically signed and approved by: Rick Alex M.D.
== END | disposition home or self-care (01) ==
LOC: RADMAMWWP 08:04
PROVIDERS: ATTEND Student in an Organized Health Care Education/Training Program
DX: Z12.31 Encounter for screening mammogram for malignant neoplasm of breast (principal); E78.2 Mixed hyperlipidemia; R39.9 Unspecified symptoms and signs involving the genitourinary system
CPT/HCPCS: 77067; 80053; 80061; 81003

== ENCOUNTER → 2023-09-11 | Outpatient (CLI) | payer OTHER ==
[2023-09-11 18:55] LABS: ALT 21 U/L (8-44); AST 18 U/L (13-35); Albumin 4.3 g/dL (3.8-4.9); Albumin/Globulin Ratio 1.95 Ratio (1.60-3.17); Alkaline Phosphatase 51 U/L (41-126); BUN/Creat Ratio 17.83 Ratio (12.00-20.00); Blood Urea Nitrogen 10.7 mg/dL (9.0-27.0); Calcium 9.4 mg/dL (8.7-10.3); Carbon Dioxide 20.6 mmol/L (21.6-31.8); Chloride 104 mmol/L (96-109); Chol/HDL Ratio 2.56 Ratio; Globulin 2.2 g/dL (1.6-3.3); Glucose 124 mg/dL (70-110); Potassium 5.2 mmol/L (3.5-5.5); Sodium 136 mmol/L (135-145); Total Bilirubin 0.3 mg/dL (0.3-1.2); Total Protein 6.5 g/dL (6.2-8.2); VLDL Calculation 13.36 mg/dL (5.00-40.00)
== END | disposition home or self-care (01) ==
LOC: LABWHC1 09:06
PROVIDERS: ATTEND Internal Medicine Interventional Cardiology
DX: I10 Essential (primary) hypertension (principal); E78.2 Mixed hyperlipidemia
CPT/HCPCS: 36415; 80053; 80061

== ENCOUNTER → 2024-03-05 | Outpatient (CLI) | payer OTHER ==
[2024-03-05 21:44] LABS: Chol/HDL Ratio 2.68 Ratio; LDL Cholesterol,Calculated 90.2 mg/dL (0.0-131.0); VLDL Calculation 16.38 mg/dL (5.00-40.00)
[2024-03-05 22:00] LABS: NT-Pro-B-Type Natriuretic Pept 387 pg/mL (0-125)
[2024-03-05 22:15] LABS: ALT 22 U/L (8-44); AST 31 U/L (13-35); Albumin 4.4 g/dL (3.8-4.9); Albumin/Globulin Ratio 1.91 Ratio (1.60-3.17); Alkaline Phosphatase 53 U/L (41-126); Blood Urea Nitrogen 10.8 mg/dL (9.0-27.0); Calcium 9.5 mg/dL (8.7-10.3); Carbon Dioxide 19.4 mmol/L (21.6-31.8); Chloride 104 mmol/L (96-109); Globulin 2.3 g/dL (1.6-3.3); Glucose 134 mg/dL (70-110); Potassium 5.2 mmol/L (3.5-5.5); Sodium 139 mmol/L (135-145); Total Bilirubin 0.3 mg/dL (0.3-1.2); Total Protein 6.7 g/dL (6.2-8.2)
== END | disposition home or self-care (01) ==
LOC: LABWHC1 09:11
PROVIDERS: ATTEND Internal Medicine Interventional Cardiology
DX: E78.2 Mixed hyperlipidemia (principal); I42.8 Other cardiomyopathies; I50.22 Chronic systolic (congestive) heart failure
CPT/HCPCS: 36415; 80053; 80061; 83880

== ENCOUNTER → 2024-12-30 | Outpatient (CLI) | payer BC ==
[2024-12-30 16:38] LABS: Basophils # (A) 0.06 X 10*3/uL (0.00-0.10); Basophils % (A) 0.6 %; Eosinophils # (A) 0.09 X 10*3/uL (0.04-0.35); HCT 42.4 % (37.2-46.3); HGB 13.8 g/dL (12.0-15.0); Lymphocytes # (A) 1.38 X 10*3/uL (0.90-5.00); Lymphocytes % (A) 14.6 %; MCH 31.7 pg (27.0-32.0); MCHC 32.5 g/dL (32.0-37.0); MCV 97.5 FL (80.0-97.0); Mean Platelet Volume 9.5 FL (9.5-12.2); Monocytes # (A) 0.59 X 10*3/uL (0.20-1.00); Monocytes % (A) 6.3 %; NRBC Per 100 WBC 0 X 10*3/uL (0.00-0.01); Neutrophils % (A) 77.3 %; Platelet Count 361 X 10*3/uL (140-440); RBC 4.35 X 10*6/uL (4.10-5.20); RDW 12.1 % (11.5-14.5); WBC 9.44 X 10*3/uL (4.50-10.00)
[2024-12-30 17:11] LABS: NT-Pro-B-Type Natriuretic Pept 1427 pg/mL (0-125)
[2024-12-30 18:10] LABS: ALT 20 U/L (8-44); AST 25 U/L (13-35); Albumin 4.1 g/dL (3.8-4.9); Albumin/Globulin Ratio 1.95 Ratio (1.60-3.17); Alkaline Phosphatase 59 U/L (41-126); BUN/Creat Ratio 20.33 Ratio (12.00-20.00); Blood Urea Nitrogen 12.2 mg/dL (9.0-27.0); Calcium 9.1 mg/dL (8.7-10.3); Carbon Dioxide 16.3 mmol/L (21.6-31.8); Chloride 107 mmol/L (96-109); Chol/HDL Ratio 2.79 Ratio; Globulin 2.1 g/dL (1.6-3.3); Glucose 127 mg/dL (70-110); LDL Cholesterol,Calculated 122.5 mg/dL (0.0-131.0); Potassium 4.8 mmol/L (3.5-5.5); Sodium 138 mmol/L (135-145); T4, Free (Free Thyroxine) 0.82 ng/dL (0.80-1.80); Total Bilirubin 0.3 mg/dL (0.3-1.2); Total Protein 6.2 g/dL (6.2-8.2); VLDL Calculation 17.54 mg/dL (5.00-40.00)
[2024-12-30 20:43] LABS: Urine Creatinine 97.1 mg/dL (28.0-217.0)
== END | disposition home or self-care (01) ==
LOC: LABWHC1 09:29
PROVIDERS: ATTEND Nurse Practitioner Adult Health
DX: I42.8 Other cardiomyopathies (principal); E78.2 Mixed hyperlipidemia; E11.65 Type 2 diabetes mellitus with hyperglycemia
CPT/HCPCS: 36415; 80053; 80061; 82043; 82570; 83036; 83880; 84439; 84443; 85025

== ENCOUNTER → 2025-03-10 | Outpatient (CLI) | payer BC ==
--- NOTE | 2025-03-10 11:54 | MM ---
Reason for Exam: Screening (asymptomatic). Last mammogram was performed 2 year(s) and 2 month(s) ago. Patient History: Menarche at age 16. Patient has no children. Premenopausal. Last menstrual period: 03/03/2025 Risk Values: Viki 5 year model risk: 0.9%. NCI Lifetime model risk: 9.3%. Prior Study Comparison: 06/10/2019 Bilateral Diagnostic Mammogram, [facility]. 12/21/2022 Bilateral MG screening mammo w CAD, [facility]. Tissue Density: There are scattered areas of fibroglandular density. Findings: Analyzed By CAD. There is no suspicious group of microcalcifications or new suspicious mass in either breast. Overall Assessment: Negative, BI-RAD 1 Management: Screening Mammogram of both breasts in 1 year. Patient should continue monthly self-breast exams. A clinical breast exam by your physician is recommended on an annual basis. This exam should not preclude additional follow-up of suspicious palpable abnormalities. Note on Viki scores and lifetime risk: 1. A Viki score greater than 3% is considered moderate risk. If this is the case, consider specialist referral to assess eligibility for a risk reducing agent. 2. If overall lifetime risk for the development of breast cancer is 20% or higher, the patient may qualify for future screening with alternating mammogram and breast MRI. [facility], , 03/10/2025 11:51 AM. Electronically signed and approved by: Abbey Freeman M.D. Radiologist
== END | disposition home or self-care (01) ==
LOC: RADMAMWWP 08:39
PROVIDERS: ATTEND Student in an Organized Health Care Education/Training Program
DX: Z12.31 Encounter for screening mammogram for malignant neoplasm of breast (principal); R92.323 Mammographic fibroglandular density, bilateral breasts
CPT/HCPCS: 77063; 77067